=== PATIENT | female | born 1945 | race Caucasian/White ===

== ENCOUNTER 2017-03-15 17:44 | Inpatient (IN) | payer MEDICARE, OTHER ==
[~2017-03-15 17:44] MED LIST: ISOVUE-370 76%-LOCM 1 ML ONE
[2017-03-15 19:09] LABS: Hematocrit 28.2 % (36.0-47.0); Mean Platelet Volume 11.6 fL (7.4-10.4); Red Blood Cell (RBC) Count 2.62 mill/uL (4.20-5.40); White Blood Cell (WBC) Count 13.4 thou/uL (4.8-10.8)
[2017-03-15] MEDS ORDERED: Ondansetron HCl/PF 4 MG/2 ML Vial ONE (19:19)
[2017-03-15] MEDS ORDERED: Lidocaine 1% w/Epinephrine 1:200K 30 ML VIAL ONE (19:19)
[2017-03-15] MEDS ORDERED: Fentanyl 100 MCG/2 ML VIAL ONE (19:19)
[2017-03-15 19:27] LABS: ALT (SGPT) Less than 7 U/L (8-55); AST (SGOT) 9 U/L (5-34); Alkaline Phosphatase 50 U/L (40-150); Anion Gap 15 mmol/L (10-20); BUN (Urea Nitrogen) 22 mg/dL (9.8-20.1); Bilirubin, Total 0.4 mg/dL (0.2-1.2); Calc. Creatinine Clearance 0 mL/min (70-130); Calcium 8.3 mg/dL (7.8-10.44); Carbon Dioxide 23 mmol/L (23-31); Chloride 95 mmol/L (98-107); Estimated GFR-MDRD 58; Globulin 2.9 g/dL (2.4-3.5); Protein, Total 6.5 g/dL (6.0-8.3)
[2017-03-15 19:31] LABS: Anisocytosis SLIGHT = 6-15 cells (100X) (0-5/hpf); Band 4 % (5-11); Macrocytosis SLIGHT = 6-15 cells (100X) (0-5/hpf); Myelocyte 1 % (0-0); Neutrophil 80 % (42-75); Nucleated RBC 1 % (0); Ovalocytes SLIGHT = 2-5 cells (100X) (0-1/hpf); Polychromasia SLIGHT = 2-3 cells (100X) (0-2/hpf); Schistocytes SLIGHT = 2-5 cells (100X) (0-1/hpf); Tear Drops SLIGHT = 2-5 cells (100X) (0-1/hpf)
[2017-03-15 20:49] LABS: Lactic Acid - Sepsis 0.9 mmol/L (0.5-2.2)
--- NOTE | 2017-03-15 21:25 | PDOC.EVN ---
Event Note - Event Note Event Note: [id number] h&P dictated 1. Buttock abscess 2. H/O HTN 3. Sepsis Plan: see orders
--- NOTE | 2017-03-15 23:16 | CT ---
CT PELVIS WITH IV CONTRAST: 03/15/17 HISTORY: Boils on buttocks with some recently lanced. FINDINGS: Urinary bladder has a normal appearance. Reactive appearing bilateral inguinal lymph nodes are prese nt, right larger than left, measuring up to 2.2 cm. No free fluid is apparent within the pelvis. Laceration and soft tissue gas are contained to the subcutaneous tissues. this is more prominent to the right of the intergluteal fold. The gas and inflammation extend up to 4.1 cm deep. Underlying mu scle is not involved. No focal fluid collections are apparent. IMPRESSION: 1. Soft tissue laceration and soft tissue gas are contained to the subcutaneous tissues around each side of the buttocks, as detailed above. 2. Reactive inguinal adenopathy. POS: JINA
[2017-03-15] MEDS: Sodium Chloride 0.9% 1,000 ML IV SCH (23:37)
[2017-03-15] MEDS: HYDROcodone/Acetaminophen 5/325 mg Tablet PO PRN (23:38)
[2017-03-16] MEDS: Piperacillin/Tazobactam 3.375 GM in Sodium Chloride 0.9% 100 ML IVPB SCH ×4 (02:56→21:51)
[2017-03-16] MEDS ORDERED: VANCOMYCIN IVPB PRN (04:06)
[2017-03-16] MEDS ORDERED: Vancomycin HCl 1.5 GM in Sodium Chloride 0.9% 250 ML 300 ML IVPB SCH (06:00)
[2017-03-16 06:15] LABS: Anion Gap 11 mmol/L (10-20); BUN (Urea Nitrogen) 12 mg/dL (9.8-20.1); Calc. Creatinine Clearance 74 mL/min (70-130); Calcium 7.9 mg/dL (7.8-10.44); Carbon Dioxide 24 mmol/L (23-31); Chloride 101 mmol/L (98-107); Estimated GFR-MDRD 81
--- NOTE | 2017-03-16 06:15 | HP ---
CHIEF COMPLAINT: Bilateral buttock abscess. HISTORY OF PRESENT ILLNESS: The patient is a 71-year-old female. She started noticing an abscess on the right buttock initially on Sunday. Since then it slowly got worse, initially the size was a quarter size and it got worse, associated with pain so she went to the PCP as an inpatient and I\T\D done and packing done. Today she went back to see the PCP, the abscess extended and then it is present on the left buttock also so the patient was brought to the ER. Upon ER arrival the patient was found to have bilateral buttock abscess so the patient had an I\T\D done on the left buttock also. The patient admits to some chills, denies any fever, denies any nausea, denies any vomiting, denies any chest pain, denies any trouble breathing, complains of constant pain. Pain is 10/10, worsens with touch, some relief with pain medication. PAST MEDICAL HISTORY: Hypertension, hyperlipidemia. PAST SURGICAL HISTORY: Knee surgery. SOCIAL HISTORY: Denies smoking, denies alcohol and drugs. FAMILY HISTORY: Positive for heart problems. MEDICATIONS: Reviewed. REVIEW OF SYSTEMS: CONSTITUTIONAL: Denies any fever, denies any chills. EYES: PERRLA. ENT: denies hearing problems NECK: No neck pain. CARDIOVASCULAR: Denies chest pain, denies palpitations. RESPIRATORY: No wheezing, no rhonchi. Denies any wheezing. Denies any dyspnea. GASTROINTESTINAL: Denies abdominal pain, denies any nausea, vomiting. Positive for bilateral buttock ulcers. CRANIAL NERVE SYSTEM: Denies syncope. PSYCHIATRIC: Denies anxiety. INTEGUMENTARY: Denies any rash. GENITOURINARY: Denies dysuria. All other review of systems are reviewed and are negative. PHYSICAL EXAMINATION: VITAL SIGNS: At the time of H\T\P performed, blood pressure is 103/65, afebrile , respiration of 18, pulse ox 97% on room air. GENERAL: The patient appears in pain. HEENT: Nose normal. Ears patent. Hearing normal. Teeth intact. Tongue is moist. NECK: Supple, no JVD. CARDIOVASCULAR SYSTEM: S1, S2 present. Regular rate and rhythm. No murmurs, no rubs, no gallops. RESPIRATORY SYSTEM: No wheezing, no rhonchi. Breath sounds symmetric. GI: Positive for bilateral buttock ulcers. Positive for induration, positive for drainage present, warm to touch, tender to palpate. PSYCH: Mood is appropriate at this time. NEUROLOGIC: Awake, follows commands. Strength intact, sensory intact. MUSCULOSKELETAL: No edema. INTEGUMENTARY: Positive for bilateral buttock erythema present. LABORATORY DATA: At the time of H\T\P performed; white count of 10.4, hemoglobin 9.3, platelet count 249. BMP: Sodium 138, potassium 4.8, chloride 95, CO2 23, BUN 22, creatinine 0.95. ASSESSMENT AND PLAN: The patient is 71-year-old female. 1. Bilateral buttock abscess, status post incision and drainage. We will go ahead and consult General Surgery to evaluate the patient. We will keep the patient n.p.o. We will do CT pelvis to evaluate for any deep infection. We will start the patient on vancomycin and Zosyn. 2. Pain, p.r.n. pain medications. 3. Hyponatremia, mild probably due to hypovolemia, start IV fluids, repeat BMP in a.m. 4. Hypertension, monitor blood pressures, hold blood pressure medications. 5. History of hyperlipidemia. Continue home medications. The case was discussed in detail with the patient and the patient's also. ELÍAS
[2017-03-16 08:22] LABS: Band 8 % (5-11); Blast 1 % (0-0); Mean Platelet Volume 11.9 fL (7.4-10.4); Metamyelocyte 2 % (0-0); Myelocyte 1 % (0-0); Neutrophil 58 % (42-75); Nucleated RBC 1 % (0); Ovalocytes MODERATE= 6-15 cells (100X) (0-1/hpf); Polychromasia SLIGHT = 2-3 cells (100X) (0-2/hpf); Reactive Lymphocytes 5 % (0-10); Red Blood Cell (RBC) Count 2.41 mill/uL (4.20-5.40); Tear Drops MODERATE= 6-15 cells (100X) (0-1/hpf); White Blood Cell (WBC) Count 8.8 thou/uL (4.8-10.8)
[2017-03-16] MEDS ORDERED: Acetaminophen 325 MG TAB PO PRN (09:22)
[2017-03-16] MEDS ORDERED: Eucerin (Mineral Oil/Petrolatum,White) 30 gm Jar TOP PRN (09:22)
[2017-03-16] MEDS ORDERED: Senokot 8.6 MG TAB PO PRN (09:22)
[2017-03-16] MEDS ORDERED: Artificial Tears 18 DROP/0.9 ML EA EYE PRN (09:22)
[2017-03-16] MEDS ORDERED: Sodium Chloride 0.65% Nasal 44 ML BOT EA NARE PRN (09:22)
[2017-03-16] MEDS ORDERED: Milk Of Magnesia 30 ML UDCUP PO PRN (09:22)
[2017-03-16] MEDS ORDERED: Loperamide HCl 2 MG CAP PO PRN (09:22)
[2017-03-16] MEDS ORDERED: Mag-Al 1200 mg/1200 mg/30 ML UDCUP PO PRN (09:22)
[2017-03-16] MEDS ORDERED: Ondansetron ODT 4 MG TAB PO PRN (09:22)
[2017-03-16] MEDS: Sodium Chloride 0.9% 1,000 ML IV SCH (10:06)
[2017-03-16] MEDS: Heparin 5,000 UNITS/ML VIAL SC SCH ×3 (10:07→21:50)
--- NOTE | 2017-03-16 11:16 | CON ---
DATE OF CONSULTATION: 03/16/2017 HISTORY OF PRESENT ILLNESS: A 71-year-old female seen in the emergency room for incision and draina ge right buttock abscess. She had a new abscess on the left that was drained by Dr. Rosen. She marino s previous drainage of the right abscess. She is admitted for intravenous antibiotics. I have been asked to see her regarding this. The wound looks very indurated, red and a small 2.5 to 3 cm incis ion made. There was necrotic tissue. Plan is to debride this and drain this further in the operati ng room today under anesthesia. She understands the risks and benefits and consents. She is on van comycin and Zosyn. ALLERGIES: None. SOCIAL HISTORY: Tobacco 1/2 pack per day. ALCOHOL: Socially. HOME MEDICATIONS: Home medication list is not reconciled. She has a bag of medications that have n ot been listed yet. . PAST SURGICAL HISTORY: Left carotid endarterectomy, left lumbar hernia repair, right inguinal herni a repair, total abdominal hysterectomy without oophorectomy. PAST MEDICAL HISTORY: She has some hematological problem with microcytic anemia that Dr. Raines marino s been seeing. She is due for colonoscopy. She had one many years ago with Dr. Lima. The patient is followed by Dr. Paxton Parisi. She has had a cardiac stress test last year that was normal, has sultana e kind of calcium score that they are following. She has never had a catheterization, but did have an normal exercise stress test in the office last year. REVIEW OF SYSTEMS: Ten point noncontributory. PHYSICAL EXAMINATION: VITAL SIGNS: Height 5 foot 2, 141 pounds, 25 BMI, 98.5, 89, 91/56. HEENT: Unremarkable. LUNGS: Clear to auscultation. CARDIAC: Regular rate and rhythm without murmur or gallop. ABDOMEN: Soft, nontender. EXTREMITIES: Unremarkable. BUTTOCKS: Left buttocks small incision. No significant induration or redness. Right buttocks with severe induration over about a 12 cm area, small opening necrotic tissue beneath very tender. ASSESSMENT AND PLAN: Inadequately drained right buttock abscess. We will plan incision and drainag e under anesthesia today in the operating room. She understands the risks and benefits and consents .
--- NOTE | 2017-03-16 11:44 | PDOC.PN ---
- Subjective Encounter Start Date: 03/16/17 Encounter Start Time: 07:50 -: old records requested/rev Patient seen and examined. No new complaints. No overnight events, pt has lot of pain in right buttock - Objective MAR Reviewed: Yes Vital Signs & Weight: Vital Signs (12 hours) Temp Pulse Resp BP Pulse Ox 03/16/17 07:20 98.5 F 89 16 91/56 L 93 L 03/16/17 02:58 94/64 Weight Weight 141 lb 1.533 oz I&O: 03/15/17 03/16/17 03/17/17 06:59 06:59 06:59 Intake Total 1200 Output Total 1200 Balance 0 Result Diagrams: 03/16/17 05:04 03/16/17 05:04 Phys Exam - Physical Examination Constitutional: NAD HEENT: PERRLA, moist MMs, sclera anicteric Neck: no JVD, supple Respiratory: no wheezing, no rales, no rhonchi Cardiovascular: RRR, no significant murmur, no rub Gastrointestinal: soft, non-tender, no distention, positive bowel sounds Musculoskeletal: no edema, pulses present Neurological: non-focal, normal sensation Psychiatric: normal affect, A&O x 3 Skin: no rash, normal turgor Deviation from normal: right buttock abscess Dx/Plan (1) Abscess of buttock Code(s): L02.31 - CUTANEOUS ABSCESS OF BUTTOCK Status: Acute (2) Hyponatremia Code(s): E87.1 - HYPO-OSMOLALITY AND HYPONATREMIA Status: Acute (3) Sepsis Code(s): A41.9 - SEPSIS, UNSPECIFIED ORGANISM Status: Acute (4) Dyslipidemia Code(s): E78.5 - HYPERLIPIDEMIA, UNSPECIFIED Status: Chronic (5) Hypertension Code(s): I10 - ESSENTIAL (PRIMARY) HYPERTENSION Status: Chronic (6) Macrocytic anemia Code(s): D53.9 - NUTRITIONAL ANEMIA, UNSPECIFIED Status: Chronic - Plan cont current plan of care, plan discussed w/ family, continue antibiotics * continue vancomycin and zosyn * pain control * selected home medication * discussed with dr castillo, will need I & D in OR later today * wound care. * medication reviewed as below * symptomatic treatment Review of Systems - Review of Systems ENT: negative: Ear Pain, Ear Discharge, Nose Pain, Nose Discharge, Nose Congestion, Mouth Pain, Mouth Swelling, Throat Pain, Throat Swelling, Other Respiratory: negative: Cough, Dry, Shortness of Breath, Hemoptysis, SOB with Excertion, Pleuritic Pain, Sputum, Wheezing Cardiovascular: negative: Chest Pain, Palpitations, Orthopnea, Paroxysmal Noc. Dyspnea, Edema, Light Headedness, Other Gastrointestinal: negative: Nausea, Vomiting, Abdominal Pain, Diarrhea, Constipation, Melena, Hematochezia, Other Genitourinary: negative: Dysuria, Frequency, Incontinence, Hematuria, Retention , Other Musculoskeletal: negative: Neck Pain, Shoulder Pain, Arm Pain, Back Pain, Hand Pain, Leg Pain, Foot Pain, Other Skin: negative: Rash, Lesions, Guillermo, Bruising, Other - Medications/Allergies Allergies/Adverse Reactions: Allergies Allergy/AdvReac Type Severity Reaction Status Date / Time No Known Allergies Allergy Verified 03/15/17 22:21 Medications: Current Medications Acetaminophen (Tylenol) 650 mg PO Q4H PRN PRN Reason: Headache/Fever or Mild Pain Hydrocodone Bitart/Acetaminophen ([place] 5/325) 1 tab PO Q4H PRN PRN Reason: Moderate Pain (4-6) Al Hydroxide/Mg Hydroxide (Maalox) 15 ml PO Q4H PRN PRN Reason: Heartburn or Indigestion Artificial Tears (Tears Naturale) 0 drop EA EYE PRN PRN PRN Reason: Dry Eyes Famotidine (Pepcid) 20 mg PO BID [facility] Guaifenesin (Robitussin Sf) 200 mg PO Q4H PRN PRN Reason: Cough Heparin Sodium (Porcine) (Heparin) 5,000 units SC TID [facility] Last Admin: 03/16/17 10:07 Dose: Not Given Hydralazine HCl (Apresoline) 5 mg SLOW IVP Q4H PRN PRN Reason: SBP Greater Than 170 Piperacillin Sod/Tazobactam (Sod 3.375 gm/ Sodium Chloride) 100 mls @ 200 mls/ hr IVPB 0300,0900,1500,2100 [facility] Last Admin: 03/16/17 10:06 Dose: 100 mls Vancomycin HCl 1 gm/ Device 200 mls @ 200 mls/hr IVPB 2000 [facility] Sodium Chloride (1/2 Normal Saline) 1,000 mls @ 100 mls/hr IV .Q10H [facility] Loperamide HCl (Imodium) 2 mg PO PRN PRN PRN Reason: Diarrhea/Loose Stools Magnesium Hydroxide (Milk Of Magnesium) 30 ml PO DAILYPRN PRN PRN Reason: Constipation Mineral Oil/White Petrolatum (Eucerin Cream) 0 gm TOP BIDPRN PRN PRN Reason: Dry Skin Miscellaneous Medication (Pharmacy To Dose) 1 each IVPB PRN PRN PRN Reason: RPH TO DOSE VANC Morphine Sulfate (Morphine Sulfate) 4 mg SLOW IVP Q4H PRN PRN Reason: Severe Pain (7-10) Ondansetron HCl (Zofran Odt) 4 mg PO Q6H PRN PRN Reason: Nausea/Vomiting Ondansetron HCl (Zofran) 4 mg IVP Q6H PRN PRN Reason: Nausea/Vomiting Saccharomyces Boulardii (Florastor) 250 mg PO DAILY [facility] Senna (Senokot) 2 tab PO HSPRN PRN PRN Reason: Constipation Sodium Chloride ([place] Nasal [place] 0.65%) 0 ml EA NARE QIDPRN PRN PRN Reason: Nasal Congestion
[2017-03-16] MEDS: Sodium Chloride 0.45% 1,000 ML IV SCH ×2 (15:53→21:41)
[2017-03-16] MEDS ORDERED: Metoprolol Tartrate 25 MG TAB PO SCH (16:45)
[2017-03-16] MEDS ORDERED: Scopolamine 1.5 mg/72 hour Patch ONE (18:45)
[2017-03-16] MEDS ORDERED: Bupivacaine HCl 0.5%/Epinephrine 1:200,000/PF 30 ml Vial ONE (19:27)
[2017-03-16] MEDS ORDERED: Fentanyl 100 MCG/2 ML VIAL ONE (19:33)
[2017-03-16] MEDS ORDERED: Lidocaine 2% PF 10 ML AMP (For Epidural Use) ONE (19:54)
[2017-03-16] MEDS ORDERED: Glycopyrrolate 0.2 MG/ML 5 ML SYRINGE ONE (19:54)
[2017-03-16] MEDS ORDERED: Ondansetron HCl/PF 4 MG/2 ML Vial ONE (19:54)
[2017-03-16] MEDS ORDERED: Propofol 200 MG/20 ML VIAL ONE (19:54)
[2017-03-16] MEDS ORDERED: Famotidine 20 MG TAB PO SCH (21:00)
[2017-03-16] MEDS ORDERED: traMADol HCl 50 MG TAB PO PRN (21:31)
[2017-03-16] MEDS ORDERED: Acetaminophen 500 MG TAB PO PRN (21:31)
[2017-03-16] MEDS: Vancomycin HCl 1 GM in Premix Bag 1 BAG IVPB SCH (21:35)
[2017-03-17] MEDS: Piperacillin/Tazobactam 3.375 GM in Sodium Chloride 0.9% 100 ML IVPB SCH ×4 (03:01→20:57)
--- NOTE | 2017-03-17 06:57 | OP ---
DATE OF OPERATION: 03/16/2017 PREOPERATIVE DIAGNOSIS: Right buttock abscess. POSTOPERATIVE DIAGNOSIS: Right buttock abscess. PROCEDURES PERFORMED: Incision and drainage of right buttock abscess with sharp excision resectiona l, necrotic skin edges, more aggressive drainage of deep tissues. Wound packed open to heal by seco ndary intention. ANESTHESIA: General anesthesia, local 0.5% Marcaine with epinephrine mixed with 2% Xylocaine, 10 mL respectfully. ESTIMATED BLOOD LOSS: 20 mL. DESCRIPTION OF PROCEDURE: Patient was taken to the operating room where under general anesthesia in the left lateral decubitus position with proper padding, anne bag, and axillary roll, her right but tock was prepared with Betadine and draped in routine fashion. There some necrotic skin edges. Ski n and subcutaneous tissue excised with #10 blade sharply resectional and hemostasis gained with caut keren. There was induration in the deep tissues and this was opened. There was some cloudy particula te fluid drained. This was opened down to healthy tissue. Hemostasis gained with cautery. Wound w as irrigated. Local anesthetic infiltrated about the wound for postoperative pain control. Wound p acked open. The patient tolerated the procedure well.
[2017-03-17] MEDS: Heparin 5,000 UNITS/ML VIAL SC SCH ×2 (09:07→20:58)
[2017-03-17] MEDS: Polyethylene Glycol 3350 17 GM Packet PO SCH (09:07)
[2017-03-17] MEDS: Tolterodine Tartrate LA 4 MG CAP PO SCH (09:08)
[2017-03-17] MEDS: Saccharomyces boulardii 250 MG CAP PO SCH (09:17)
[2017-03-17] MEDS: HYDROcodone/Acetaminophen 5/325 mg Tablet PO PRN (09:32)
--- NOTE | 2017-03-17 11:11 | PDOC.PN ---
- Subjective Encounter Start Date: 03/17/17 Encounter Start Time: 07:30 Patient seen and examined. No new complaints. No overnight events - Objective MAR Reviewed: Yes Vital Signs & Weight: Vital Signs (12 hours) Temp Pulse Resp BP Pulse Ox 03/17/17 09:59 97.6 F 73 18 03/17/17 04:38 97.6 F 73 18 105/62 98 03/17/17 00:00 98.0 F 80 14 94/60 95 Weight Weight 141 lb 1.533 oz I&O: 03/16/17 03/17/17 03/18/17 06:59 06:59 06:59 Intake Total 1200 730 Output Total 1200 300 Balance 0 430 Result Diagrams: 03/16/17 05:04 03/16/17 05:04 Phys Exam - Physical Examination Constitutional: NAD HEENT: PERRLA, moist MMs, sclera anicteric Neck: no JVD, supple Respiratory: no wheezing, no rales, no rhonchi Cardiovascular: RRR, no significant murmur, no rub Gastrointestinal: soft, non-tender, no distention, positive bowel sounds Musculoskeletal: no edema, pulses present Neurological: non-focal, normal sensation, moves all 4 limbs Psychiatric: normal affect, A&O x 3 Skin: no rash, normal turgor Dx/Plan (1) Abscess of buttock Code(s): L02.31 - CUTANEOUS ABSCESS OF BUTTOCK Status: Acute Comment: s/p I & D (2) Hyponatremia Code(s): E87.1 - HYPO-OSMOLALITY AND HYPONATREMIA Status: Acute (3) Sepsis Code(s): A41.9 - SEPSIS, UNSPECIFIED ORGANISM Status: Acute (4) Dyslipidemia Code(s): E78.5 - HYPERLIPIDEMIA, UNSPECIFIED Status: Chronic (5) Hypertension Code(s): I10 - ESSENTIAL (PRIMARY) HYPERTENSION Status: Chronic (6) Macrocytic anemia Code(s): D53.9 - NUTRITIONAL ANEMIA, UNSPECIFIED Status: Chronic - Plan cont current plan of care, plan discussed w/ family, continue antibiotics, social sciences instructor * s/p I & D * now will need wound care by [facility] * will need home health for wound care * continue IV vancomycin and zosyn * medication reviewed as below * symptomatic treatment. Review of Systems - Review of Systems Constitutional: negative: Fever, Chills, Sweats, Weakness, Malaise, Other ENT: negative: Ear Pain, Ear Discharge, Nose Pain, Nose Discharge, Nose Congestion, Mouth Pain, Mouth Swelling, Throat Pain, Throat Swelling, Other Respiratory: negative: Cough, Dry, Shortness of Breath, Hemoptysis, SOB with Excertion, Pleuritic Pain, Sputum, Wheezing Cardiovascular: negative: Chest Pain, Palpitations, Orthopnea, Paroxysmal Noc. Dyspnea, Edema, Light Headedness, Other Gastrointestinal: negative: Nausea, Vomiting, Abdominal Pain, Diarrhea, Constipation, Melena, Hematochezia, Other Genitourinary: negative: Dysuria, Frequency, Incontinence, Hematuria, Retention , Other Musculoskeletal: negative: Neck Pain, Shoulder Pain, Arm Pain, Back Pain, Hand Pain, Leg Pain, Foot Pain, Other - Medications/Allergies Allergies/Adverse Reactions: Allergies Allergy/AdvReac Type Severity Reaction Status Date / Time No Known Allergies Allergy Verified 03/15/17 22:21 Medications: Current Medications Acetaminophen (Tylenol) 1,000 mg PO Q6H PRN PRN Reason: Moderate to Severe Pain (6-10) Hydrocodone Bitart/Acetaminophen ([place] 5/325) 1 tab PO Q4H PRN PRN Reason: Moderate Pain (4-6) Last Admin: 03/17/17 09:32 Dose: 1 tab Al Hydroxide/Mg Hydroxide (Maalox) 15 ml PO Q4H PRN PRN Reason: Heartburn or Indigestion Artificial Tears (Tears Naturale) 0 drop EA EYE PRN PRN PRN Reason: Dry Eyes Citalopram Hydrobromide (Celexa) 20 mg PO DAILY [facility] Last Admin: 03/17/17 09:08 Dose: 20 mg Guaifenesin (Robitussin Sf) 200 mg PO Q4H PRN PRN Reason: Cough Heparin Sodium (Porcine) (Heparin) 5,000 units SC BID [facility] Last Admin: 03/17/17 09:07 Dose: 5,000 units Hydralazine HCl (Apresoline) 5 mg SLOW IVP Q4H PRN PRN Reason: SBP Greater Than 170 Piperacillin Sod/Tazobactam (Sod 3.375 gm/ Sodium Chloride) 100 mls @ 200 mls/ hr IVPB 0300,0900,1500,2100 [facility] Last Admin: 03/17/17 09:07 Dose: 100 mls Vancomycin HCl 1 gm/ Device 200 mls @ 200 mls/hr IVPB 1999 [facility] Last Admin: 03/16/17 21:35 Dose: Not Given Ibuprofen (Motrin) 600 mg PO Q6H PRN PRN Reason: Pain 4-6 Loperamide HCl (Imodium) 2 mg PO PRN PRN PRN Reason: Diarrhea/Loose Stools Magnesium Hydroxide (Milk Of Magnesium) 30 ml PO DAILYPRN PRN PRN Reason: Constipation Mineral Oil/White Petrolatum (Eucerin Cream) 0 gm TOP BIDPRN PRN PRN Reason: Dry Skin Miscellaneous Medication (Pharmacy To Dose) 1 each IVPB PRN PRN PRN Reason: RPH TO DOSE VANC Morphine Sulfate (Morphine Sulfate) 4 mg SLOW IVP Q4H PRN PRN Reason: Severe Pain (7-10) Last Admin: 03/16/17 15:51 Dose: 4 mg Ondansetron HCl (Zofran Odt) 4 mg PO Q6H PRN PRN Reason: Nausea/Vomiting Ondansetron HCl (Zofran) 4 mg IVP Q6H PRN PRN Reason: Nausea/Vomiting Pantoprazole Sodium (Protonix) 40 mg PO DAILY [facility] Last Admin: 03/17/17 09:08 Dose: 40 mg Polyethylene Glycol (Miralax) 17 gm PO DAILY [facility] Last Admin: 03/17/17 09:07 Dose: 17 gm Saccharomyces Boulardii (Florastor) 250 mg PO DAILY [facility] Last Admin: 03/17/17 09:17 Dose: 250 mg Senna (Senokot) 2 tab PO HSPRN PRN PRN Reason: Constipation Simvastatin (Zocor) 40 mg PO [facility] Sodium Chloride ([place] Nasal [place] 0.65%) 0 ml EA NARE QIDPRN PRN PRN Reason: Nasal Congestion Tolterodine Tartrate (Detrol La) 4 mg PO DAILY [facility] Last Admin: 03/17/17 09:08 Dose: 4 mg Tramadol HCl (Ultram) 50 mg PO Q6H PRN PRN Reason: Mild-Moderate Pain (1-5) Tramadol HCl (Ultram) 100 mg PO Q6H PRN PRN Reason: Moderate to Severe Pain (6-10)
[2017-03-17] MEDS: Diabetic Tussin 200 MG/10 ML UDCUP PO PRN (19:06)
[2017-03-17 19:41] LABS: Vancomycin, Trough 5.2 ug/mL
[2017-03-17] MEDS: Vancomycin HCl 1 GM in Premix Bag 1 BAG IVPB SCH (20:57)
[2017-03-17] MEDS: Simvastatin 40 MG TAB PO SCH (20:57)
[2017-03-18] MEDS: Piperacillin/Tazobactam 3.375 GM in Sodium Chloride 0.9% 100 ML IVPB SCH ×4 (04:41→20:32)
[2017-03-18] MEDS: Vancomycin HCl 1 GM in Premix Bag 1 BAG IVPB SCH ×2 (08:41→20:31)
[2017-03-18] MEDS: Polyethylene Glycol 3350 17 GM Packet PO SCH ×2 (08:41→20:32)
[2017-03-18] MEDS: Heparin 5,000 UNITS/ML VIAL SC SCH ×2 (08:47→20:31)
[2017-03-18] MEDS: Saccharomyces boulardii 250 MG CAP PO SCH (08:47)
[2017-03-18] MEDS: Tolterodine Tartrate LA 4 MG CAP PO SCH (08:47)
[2017-03-18] MEDS ORDERED: Bisacodyl 10 MG SUPP PR PRN (10:05)
[2017-03-18] MEDS ORDERED: Fleet Enema 133 ML BOT PR PRN (10:05)
[2017-03-18] MEDS ORDERED: Polyethylene Glycol 3350 17 GM Packet PO SCH (10:15)
--- NOTE | 2017-03-18 11:25 | PDOC.PN ---
- Subjective Encounter Start Date: 03/18/17 Encounter Start Time: 07:35 pt has constipation, no fever Patient seen and examined. No overnight events - Objective MAR Reviewed: Yes Vital Signs & Weight: Vital Signs (12 hours) Temp Pulse Resp BP Pulse Ox 03/18/17 08:05 88 14 113/72 03/18/17 08:00 98.5 F 86 16 111/70 93 L 03/18/17 04:00 98.4 F 86 14 97/63 92 L 03/18/17 00:30 107/70 03/18/17 00:00 98.3 F 87 14 90/49 L 93 L Weight Admit Weight 141 lb Weight 141 lb 1.533 oz I&O: 03/17/17 03/18/17 03/19/17 06:59 06:59 06:59 Intake Total 730 800 Output Total 300 1450 Balance 430 -650 Result Diagrams: 03/16/17 05:04 03/16/17 05:04 Phys Exam - Physical Examination Constitutional: NAD HEENT: PERRLA, moist MMs, sclera anicteric Neck: no JVD, supple Respiratory: no wheezing, no rales, no rhonchi Cardiovascular: RRR, no significant murmur, no rub Gastrointestinal: soft, non-tender, no distention, positive bowel sounds Musculoskeletal: no edema, pulses present Neurological: non-focal, normal sensation Psychiatric: normal affect, A&O x 3 Skin: no rash, normal turgor Dx/Plan (1) Abscess of buttock Code(s): L02.31 - CUTANEOUS ABSCESS OF BUTTOCK Status: Acute Comment: s/p I & D (2) Hyponatremia Code(s): E87.1 - HYPO-OSMOLALITY AND HYPONATREMIA Status: Acute (3) Sepsis Code(s): A41.9 - SEPSIS, UNSPECIFIED ORGANISM Status: Acute (4) Dyslipidemia Code(s): E78.5 - HYPERLIPIDEMIA, UNSPECIFIED Status: Chronic (5) Hypertension Code(s): I10 - ESSENTIAL (PRIMARY) HYPERTENSION Status: Chronic (6) Macrocytic anemia Code(s): D53.9 - NUTRITIONAL ANEMIA, UNSPECIFIED Status: Chronic - Plan cont current plan of care * will give stool softener for constipation * medication reviewed as below * symptomatic treatment * oncology to see her today. * continue vancomycin and zosyn * wound care Review of Systems - Review of Systems ENT: negative: Ear Pain, Ear Discharge, Nose Pain, Nose Discharge, Nose Congestion, Mouth Pain, Mouth Swelling, Throat Pain, Throat Swelling, Other Respiratory: negative: Cough, Dry, Shortness of Breath, Hemoptysis, SOB with Excertion, Pleuritic Pain, Sputum, Wheezing Cardiovascular: negative: Chest Pain, Palpitations, Orthopnea, Paroxysmal Noc. Dyspnea, Edema, Light Headedness, Other Gastrointestinal: Constipation. negative: Nausea, Vomiting, Abdominal Pain, Diarrhea, Melena, Hematochezia, Other Genitourinary: negative: Dysuria, Frequency, Incontinence, Hematuria, Retention , Other Musculoskeletal: negative: Neck Pain, Shoulder Pain, Arm Pain, Back Pain, Hand Pain, Leg Pain, Foot Pain, Other - Medications/Allergies Allergies/Adverse Reactions: Allergies Allergy/AdvReac Type Severity Reaction Status Date / Time No Known Allergies Allergy Verified 03/15/17 22:21 Medications: Current Medications Acetaminophen (Tylenol) 1,000 mg PO Q6H PRN PRN Reason: Moderate to Severe Pain (6-10) Hydrocodone Bitart/Acetaminophen ([place] 5/325) 1 tab PO Q4H PRN PRN Reason: Moderate Pain (4-6) Last Admin: 03/17/17 09:32 Dose: 1 tab Al Hydroxide/Mg Hydroxide (Maalox) 15 ml PO Q4H PRN PRN Reason: Heartburn or Indigestion Artificial Tears (Tears Naturale) 0 drop EA EYE PRN PRN PRN Reason: Dry Eyes Bisacodyl (Dulcolax) 10 mg MD Q8H PRN PRN Reason: Constipation Citalopram Hydrobromide (Celexa) 20 mg PO DAILY [facility] Last Admin: 03/18/17 08:47 Dose: 20 mg Guaifenesin (Robitussin Sf) 200 mg PO Q4H PRN PRN Reason: Cough Last Admin: 03/17/17 19:06 Dose: 200 mg Heparin Sodium (Porcine) (Heparin) 5,000 units SC BID [facility] Last Admin: 03/18/17 08:47 Dose: 5,000 units Hydralazine HCl (Apresoline) 5 mg SLOW IVP Q4H PRN PRN Reason: SBP Greater Than 170 Piperacillin Sod/Tazobactam (Sod 3.375 gm/ Sodium Chloride) 100 mls @ 200 mls/ hr IVPB 0300,0900,1500,2100 [facility] Last Admin: 03/18/17 08:59 Dose: 100 mls Vancomycin HCl 1 gm/ Device 200 mls @ 200 mls/hr IVPB 0800,2000 [facility] Last Admin: 03/18/17 08:41 Dose: 200 mls Ibuprofen (Motrin) 600 mg PO Q6H PRN PRN Reason: Pain 4-6 Loperamide HCl (Imodium) 2 mg PO PRN PRN PRN Reason: Diarrhea/Loose Stools Magnesium Hydroxide (Milk Of Magnesium) 30 ml PO DAILYPRN PRN PRN Reason: Constipation Mineral Oil/White Petrolatum (Eucerin Cream) 0 gm TOP BIDPRN PRN PRN Reason: Dry Skin Miscellaneous Medication (Pharmacy To Dose) 1 each IVPB PRN PRN PRN Reason: RPH TO DOSE VANC Morphine Sulfate (Morphine Sulfate) 4 mg SLOW IVP Q4H PRN PRN Reason: Severe Pain (7-10) Last Admin: 03/16/17 15:51 Dose: 4 mg Ondansetron HCl (Zofran Odt) 4 mg PO Q6H PRN PRN Reason: Nausea/Vomiting Ondansetron HCl (Zofran) 4 mg IVP Q6H PRN PRN Reason: Nausea/Vomiting Pantoprazole Sodium (Protonix) 40 mg PO DAILY [facility] Last Admin: 03/18/17 08:47 Dose: 40 mg Polyethylene Glycol (Miralax) 17 gm PO BID [facility] Polyethylene Glycol (Miralax) 17 gm PO NOW [facility] Stop: 03/18/17 13:00 Saccharomyces Boulardii (Florastor) 250 mg PO DAILY [facility] Last Admin: 03/18/17 08:47 Dose: 250 mg Senna (Senokot) 2 tab PO HSPRN PRN PRN Reason: Constipation Simvastatin (Zocor) 40 mg PO HS [facility] Last Admin: 03/17/17 20:57 Dose: 40 mg Sodium Biphosphate/Sodium Phosphate ([place] Enema) 133 ml MD ONE PRN PRN Reason: Constipation Stop: 03/18/17 23:59 Sodium Chloride ([place] Nasal [place] 0.65%) 0 ml EA NARE QIDPRN PRN PRN Reason: Nasal Congestion Tolterodine Tartrate (Detrol La) 4 mg PO DAILY [facility] Last Admin: 03/18/17 08:47 Dose: 4 mg Tramadol HCl (Ultram) 50 mg PO Q6H PRN PRN Reason: Mild-Moderate Pain (1-5) Tramadol HCl (Ultram) 100 mg PO Q6H PRN PRN Reason: Moderate to Severe Pain (6-10)
[2017-03-18] MEDS: Ibuprofen 600 MG TAB PO PRN (17:10)
[2017-03-18] MEDS: Simvastatin 40 MG TAB PO SCH (20:33)
[2017-03-19] MEDS: Piperacillin/Tazobactam 3.375 GM in Sodium Chloride 0.9% 100 ML IVPB SCH ×4 (04:00→20:28)
[2017-03-19 07:28] LABS: Vancomycin, Trough 22.8 ug/mL
[2017-03-19 07:40] LABS: Hematocrit 26.8 % (36.0-47.0); Mean Platelet Volume 11.5 fL (7.4-10.4); Red Blood Cell (RBC) Count 2.55 mill/uL (4.20-5.40); White Blood Cell (WBC) Count 12.7 thou/uL (4.8-10.8)
[2017-03-19 08:00] LABS: ALT (SGPT) 9 U/L (8-55); AST (SGOT) 10 U/L (5-34); Alkaline Phosphatase 43 U/L (40-150); Anion Gap 15 mmol/L (10-20); BUN (Urea Nitrogen) 7 mg/dL (9.8-20.1); Bilirubin, Total 0.2 mg/dL (0.2-1.2); Calc. Creatinine Clearance 60 mL/min (70-130); Carbon Dioxide 27 mmol/L (23-31); Chloride 106 mmol/L (98-107); Estimated GFR-MDRD 64; Globulin 2.8 g/dL (2.4-3.5); LDH 481 U/L (125-220); Protein, Total 6.1 g/dL (6.0-8.3); Uric Acid 4.6 mg/dL (2.6-6.0)
[2017-03-19] MEDS: traMADol HCl 50 MG TAB PO PRN (08:24)
[2017-03-19] MEDS: Saccharomyces boulardii 250 MG CAP PO SCH (08:24)
[2017-03-19] MEDS: Heparin 5,000 UNITS/ML VIAL SC SCH ×2 (08:24→20:27)
[2017-03-19] MEDS: Vancomycin HCl 1 GM in Premix Bag 1 BAG IVPB SCH (08:41)
[2017-03-19] MEDS: Polyethylene Glycol 3350 17 GM Packet PO SCH ×2 (08:42→20:28)
[2017-03-19 08:49] LABS: Anisocytosis MODERATE=16-30 cells (100X) (0-5/hpf); Band 11 % (5-11); Blast 27 % (0-0); Myelocyte 7 % (0-0); Neutrophil 45 % (42-75); Ovalocytes MODERATE= 6-15 cells (100X) (0-1/hpf); Polychromasia MODERATE = 3-4 cells (100X) (0-2/hpf); Tear Drops SLIGHT = 2-5 cells (100X) (0-1/hpf)
--- NOTE | 2017-03-19 11:46 | PDOC.PN ---
- Subjective Encounter Start Date: 03/19/17 Encounter Start Time: 10:50 Patient seen and examined. No new complaints. No overnight events - Objective MAR Reviewed: Yes Vital Signs & Weight: Vital Signs (12 hours) Temp Pulse Resp BP Pulse Ox 03/19/17 08:00 98.0 F 83 16 100/65 96 03/19/17 04:00 98.1 F 79 14 103/63 95 03/19/17 00:00 98.2 F 90 14 110/68 94 L Weight Admit Weight 141 lb Weight 141 lb 1.533 oz I&O: 03/18/17 03/19/17 03/20/17 06:59 06:59 06:59 Intake Total 800 1880 Output Total 1450 Balance -650 1880 Result Diagrams: 03/19/17 07:16 03/19/17 07:16 Phys Exam - Physical Examination Constitutional: NAD HEENT: PERRLA, moist MMs, sclera anicteric Neck: no JVD, supple Respiratory: no wheezing, no rales, no rhonchi Cardiovascular: RRR, no significant murmur, no rub Gastrointestinal: soft, non-tender, no distention, positive bowel sounds Musculoskeletal: no edema, pulses present wound noted over buttoch with wound care team Neurological: non-focal, normal sensation Psychiatric: normal affect, A&O x 3 Skin: no rash, normal turgor Dx/Plan (1) Abscess of buttock Code(s): L02.31 - CUTANEOUS ABSCESS OF BUTTOCK Status: Acute Comment: s/p I & D (2) Hyponatremia Code(s): E87.1 - HYPO-OSMOLALITY AND HYPONATREMIA Status: Acute (3) Sepsis Code(s): A41.9 - SEPSIS, UNSPECIFIED ORGANISM Status: Acute (4) Dyslipidemia Code(s): E78.5 - HYPERLIPIDEMIA, UNSPECIFIED Status: Chronic (5) Hypertension Code(s): I10 - ESSENTIAL (PRIMARY) HYPERTENSION (6) Macrocytic anemia Code(s): D53.9 - NUTRITIONAL ANEMIA, UNSPECIFIED Status: Chronic - Plan cont current plan of care, continue antibiotics * will need wound vac arrangement * at this point blast cell is concerning, hematology consulted for that * continue vancomycin and zosyn * medication reviewed as below * symptomatic treatment * pain control. * discussed with dr castillo Review of Systems - Review of Systems ENT: negative: Ear Pain, Ear Discharge, Nose Pain, Nose Discharge, Nose Congestion, Mouth Pain, Mouth Swelling, Throat Pain, Throat Swelling, Other Respiratory: negative: Cough, Dry, Shortness of Breath, Hemoptysis, SOB with Excertion, Pleuritic Pain, Sputum, Wheezing Cardiovascular: negative: Chest Pain, Palpitations, Orthopnea, Paroxysmal Noc. Dyspnea, Edema, Light Headedness, Other Gastrointestinal: negative: Nausea, Vomiting, Abdominal Pain, Diarrhea, Constipation, Melena, Hematochezia, Other Genitourinary: negative: Dysuria, Frequency, Incontinence, Hematuria, Retention , Other Musculoskeletal: negative: Neck Pain, Shoulder Pain, Arm Pain, Back Pain, Hand Pain, Leg Pain, Foot Pain, Other Skin: negative: Rash, Lesions, Guillermo, Bruising, Other - Medications/Allergies Allergies/Adverse Reactions: Allergies Allergy/AdvReac Type Severity Reaction Status Date / Time No Known Allergies Allergy Verified 03/15/17 22:21 Medications: Current Medications Acetaminophen (Tylenol) 1,000 mg PO Q6H PRN PRN Reason: Moderate to Severe Pain (6-10) Hydrocodone Bitart/Acetaminophen ([place] 5/325) 1 tab PO Q4H PRN PRN Reason: Moderate Pain (4-6) Last Admin: 03/17/17 09:32 Dose: 1 tab Al Hydroxide/Mg Hydroxide (Maalox) 15 ml PO Q4H PRN PRN Reason: Heartburn or Indigestion Artificial Tears (Tears Naturale) 0 drop EA EYE PRN PRN PRN Reason: Dry Eyes Bisacodyl (Dulcolax) 10 mg [place] Q8H PRN PRN Reason: Constipation Citalopram Hydrobromide (Celexa) 20 mg PO DAILY [facility] Last Admin: 03/19/17 08:24 Dose: 20 mg Guaifenesin (Robitussin Sf) 200 mg PO Q4H PRN PRN Reason: Cough Last Admin: 03/17/17 19:06 Dose: 200 mg Heparin Sodium (Porcine) (Heparin) 5,000 units SC BID [facility] Last Admin: 03/19/17 08:24 Dose: 5,000 units Hydralazine HCl (Apresoline) 5 mg SLOW IVP Q4H PRN PRN Reason: SBP Greater Than 170 Piperacillin Sod/Tazobactam (Sod 3.375 gm/ Sodium Chloride) 100 mls @ 200 mls/ hr IVPB 0300,0900,1500,2100 [facility] Last Admin: 03/19/17 10:06 Dose: 100 mls Vancomycin HCl 750 mg/ Sodium (Chloride) 250 mls @ 250 mls/hr IVPB 0800,2000 [facility] Ibuprofen (Motrin) 600 mg PO Q6H PRN PRN Reason: Pain 4-6 Last Admin: 03/18/17 17:10 Dose: 600 mg Loperamide HCl (Imodium) 2 mg PO PRN PRN PRN Reason: Diarrhea/Loose Stools Magnesium Hydroxide (Milk Of Magnesium) 30 ml PO DAILYPRN PRN PRN Reason: Constipation Mineral Oil/White Petrolatum (Eucerin Cream) 0 gm TOP BIDPRN PRN PRN Reason: Dry Skin Miscellaneous Medication (Pharmacy To Dose) 1 each IVPB PRN PRN PRN Reason: RPH TO DOSE VANC Morphine Sulfate (Morphine Sulfate) 4 mg SLOW IVP Q4H PRN PRN Reason: Severe Pain (7-10) Last Admin: 03/16/17 15:51 Dose: 4 mg Ondansetron HCl (Zofran Odt) 4 mg PO Q6H PRN PRN Reason: Nausea/Vomiting Ondansetron HCl (Zofran) 4 mg IVP Q6H PRN PRN Reason: Nausea/Vomiting Pantoprazole Sodium (Protonix) 40 mg PO DAILY [facility] Last Admin: 03/19/17 08:24 Dose: 40 mg Polyethylene Glycol (Miralax) 17 gm PO BID [facility] Last Admin: 03/19/17 08:42 Dose: Not Given Saccharomyces Boulardii (Florastor) 250 mg PO DAILY [facility] Last Admin: 03/19/17 08:24 Dose: 250 mg Senna (Senokot) 2 tab PO HSPRN PRN PRN Reason: Constipation Simvastatin (Zocor) 40 mg PO HS [facility] Last Admin: 03/18/17 20:33 Dose: 40 mg Sodium Chloride ([place] Nasal [place] 0.65%) 0 ml EA NARE QIDPRN PRN PRN Reason: Nasal Congestion Tolterodine Tartrate (Detrol La) 4 mg PO DAILY [facility] Last Admin: 03/18/17 08:47 Dose: 4 mg Tramadol HCl (Ultram) 50 mg PO Q6H PRN PRN Reason: Mild-Moderate Pain (1-5) Tramadol HCl (Ultram) 100 mg PO Q6H PRN PRN Reason: Moderate to Severe Pain (6-10) Last Admin: 03/19/17 08:24 Dose: 100 mg
[2017-03-19] MEDS: Tolterodine Tartrate LA 4 MG CAP PO SCH (12:22)
--- NOTE | 2017-03-19 14:21 | PRG ---
DATE OF SERVICE: 03/19/2017 SUBJECTIVE: Marsha Iqbal's buttock abscess looks very good. Less induration and less redness. W ound VAC once approved she can go home today from a surgical standpoint. She can be started on oral antibiotics. She should follow up in my office in 2-3 weeks.
[2017-03-19] MEDS: Simvastatin 40 MG TAB PO SCH (20:27)
[2017-03-19] MEDS: Vancomycin HCl 750 MG in Sodium Chloride 0.9% 250 ML 250 ML IVPB SCH (20:27)
[2017-03-20] MEDS: Piperacillin/Tazobactam 3.375 GM in Sodium Chloride 0.9% 100 ML IVPB SCH ×5 (02:53→20:54)
[2017-03-20] MEDS: Heparin 5,000 UNITS/ML VIAL SC SCH ×2 (08:28→20:54)
[2017-03-20] MEDS: Saccharomyces boulardii 250 MG CAP PO SCH (08:29)
[2017-03-20] MEDS: Vancomycin HCl 750 MG in Sodium Chloride 0.9% 250 ML 250 ML IVPB SCH ×2 (09:02→20:54)
[2017-03-20] MEDS: Polyethylene Glycol 3350 17 GM Packet PO SCH ×2 (09:06→20:54)
--- NOTE | 2017-03-20 11:22 | DIS ---
DATE OF ADMISSION: 03/15/2017 DATE OF DISCHARGE: 03/20/2017 PRIMARY CARE PHYSICIAN: Dr. Boubacar Marie. DISCHARGE DISPOSITION: Home. PRIMARY DISCHARGE DIAGNOSES: 1. Sepsis. 2. Buttock abscess, status post incision and drainage. 3. Hyponatremia. 4. Blast cells. SECONDARY DISCHARGE DIAGNOSES: 1. Microcytic anemia. 2. Hypertension. 3. Dyslipidemia. PRIMARY PROCEDURE/OPERATION: I\T\D performed by Dr. Tucker. RADIOLOGICAL INVESTIGATION: Pelvis CT scan. SIGNIFICANT LABORATORY DATA: Hemoglobin 8.9, blast cell was 27, creatinine 0.89, LDH 481, B12 and f olate normal. Liver enzymes normal. Electrolytes normal. Blood culture negative. DISCHARGE MEDICATIONS: Doxycycline 100 mg twice daily for 10 days, Augmentin 875/125 one tablet p.o . q.12 hours for 10 days, Florastor 250 mg p.o. daily for 10 days, aspirin 325 mg p.o. daily, Celexa 20 mg p.o. daily, hydrochlorothiazide 25 mg p.o. daily, irbesartan 150 mg p.o. daily, Procardia 60 mg p.o. daily, omeprazole 40 mg p.o. daily, potassium chloride 10 mEq p.o. daily, Inderal-LA 80 mg p .o. daily, Zocor 40 mg p.o. at bedtime, Detrol 4 mg p.o. daily. CONTRAINDICATIONS: None. CODE STATUS: FULL CODE. INPATIENT CONSULTANTS: Dr. Raines was consulted while in hospital. Dr. Tucker was consulted while in hospital. TEST RESULTS PENDING ON DISCHARGE: None. ALLERGIES: No known drug allergy. DISCHARGE PLAN: Post hospital, the patient has appointment with Dr. Raines on 03/26/2017, patient will follow up with Dr. Tucker in 2-3 weeks. The patient will make appointment with primary care ph ysician in 1 week. HOSPITAL COURSE: A 71-year-old female with the above mentioned medical problems who was admitted by Dr. Madden. Please see his H\T\P for further details. The patient was admitted for buttock absc ess with surrounding cellulitis. The patient had drainage of pus like material through the abscess. This patient required temporary I\T\D in the emergency room and subsequently the patient required I\T\D by Dr. Tucker in operation theatre. Subsequently, patient required wound VAC. The patient's pain was controlled with pain medication. We gave her vancomycin and Zosyn while in hospital. On d ischarge, we changed to Augmentin and doxycycline for another [address] Tucker cleared her for d ischarge with the wound VAC therapy. The patient will follow up with Dr. Tucker in 2-3 weeks. Patient's peripheral smear was showing blast cell and that is why we consulted Hematology. Hematolo merlin recommended that this was likely related with infection, but they gave her close followup appoint ment in the clinic. At this point, there is no further plan from Hematology point of view. Wound VAC is already arranged. The patient also excited to go home today. Her pain is well control led. She is afebrile. She is ambulatory. The patient has given all new medication prescriptions t o her pharmacy. Patient is seen and examined at bedside today. Plan of care discussed with the patient's at bedside. Her hyponatremia resolved to normal. PHYSICAL EXAMINATION: VITAL SIGNS: Currently temperature 98.9, pulse 78, respiratory rate 18, saturation 92% on room air, blood pressure 113/72, weight 141 pounds. GENERAL: The patient is currently alert, awake, no acute distress. HEAD: Normocephalic, atraumatic. EYES: Pupils round, reactive to light. LUNGS: Clear to auscultation without any rhonchi or rales. CARDIAC: S1, S2 regular without any murmur. ABDOMEN: Soft and benign. EXTREMITIES: No edema. NEUROLOGIC: Nonfocal examination. Overall, this patient is medically stable for discharge today.
[2017-03-20] MEDS: Ondansetron HCl/PF 4 MG/2 ML Vial IVP PRN ×2 (12:06→20:54)
[2017-03-20] MEDS ORDERED: Dicyclomine HCl 20 mg/2 ml Ampule IM PRN (12:13)
--- NOTE | 2017-03-20 12:24 | PDOC.PN ---
- Subjective Encounter Start Date: 03/20/17 Encounter Start Time: 10:30 this morning pt was doing well and wanted to go home, later she was having abdominal pain periumbilical and radiating to back, no fever - Objective MAR Reviewed: Yes Vital Signs & Weight: Vital Signs (12 hours) Temp Pulse Resp BP Pulse Ox 03/20/17 12:00 98 F 90 20 144/82 H 97 03/20/17 09:41 98.9 F 78 18 03/20/17 08:05 98.9 F 78 18 113/72 92 L 03/20/17 04:41 98.9 F 82 18 116/63 95 Weight Admit Weight 141 lb Weight 141 lb 1.533 oz I&O: 03/19/17 03/20/17 03/21/17 06:59 06:59 06:59 Intake Total 1880 1520 Balance 1880 1520 Result Diagrams: 03/19/17 07:16 03/19/17 07:16 Phys Exam - Physical Examination Constitutional: NAD HEENT: PERRLA, moist MMs, sclera anicteric Neck: no JVD, supple Respiratory: no wheezing, no rales, no rhonchi Cardiovascular: RRR, no significant murmur, no rub Gastrointestinal: soft, non-tender, no distention, positive bowel sounds Musculoskeletal: no edema, pulses present Neurological: non-focal, normal sensation Lymphatic: no nodes Psychiatric: normal affect, A&O x 3 Skin: normal turgor Deviation from normal: wound vac in place Dx/Plan (1) Abscess of buttock Code(s): L02.31 - CUTANEOUS ABSCESS OF BUTTOCK Status: Acute Comment: s/p I & D (2) Hyponatremia Code(s): E87.1 - HYPO-OSMOLALITY AND HYPONATREMIA Status: Acute (3) Sepsis Code(s): A41.9 - SEPSIS, UNSPECIFIED ORGANISM Status: Acute (4) Dyslipidemia Code(s): E78.5 - HYPERLIPIDEMIA, UNSPECIFIED Status: Chronic (5) Hypertension Code(s): I10 - ESSENTIAL (PRIMARY) HYPERTENSION (6) Macrocytic anemia Code(s): D53.9 - NUTRITIONAL ANEMIA, UNSPECIFIED Status: Chronic - Plan cont current plan of care, plan discussed w/ family, continue antibiotics, manager social work * as per hematology, pt is stable for discharge and outpt follow up * for abdominal pain, will get CT abdomen and get blood test to see any acute pathology * wound vac is approved * if today's investigation unremarkable and pain resolve, will consider discharge later today * will change to augmentin and doxy on discharge. Review of Systems - Review of Systems ENT: negative: Ear Pain, Ear Discharge, Nose Pain, Nose Discharge, Nose Congestion, Mouth Pain, Mouth Swelling, Throat Pain, Throat Swelling, Other Respiratory: negative: Cough, Dry, Shortness of Breath, Hemoptysis, SOB with Excertion, Pleuritic Pain, Sputum, Wheezing Cardiovascular: negative: Chest Pain, Palpitations, Orthopnea, Paroxysmal Noc. Dyspnea, Edema, Light Headedness, Other Gastrointestinal: negative: Nausea, Vomiting, Abdominal Pain, Diarrhea, Constipation, Melena, Hematochezia, Other Genitourinary: negative: Dysuria, Frequency, Incontinence, Hematuria, Retention , Other Musculoskeletal: negative: Neck Pain, Shoulder Pain, Arm Pain, Back Pain, Hand Pain, Leg Pain, Foot Pain, Other Skin: negative: Rash, Lesions, Guillermo, Bruising, Other - Medications/Allergies Allergies/Adverse Reactions: Allergies Allergy/AdvReac Type Severity Reaction Status Date / Time No Known Allergies Allergy Verified 03/15/17 22:21 Medications: Current Medications Acetaminophen (Tylenol) 1,000 mg PO Q6H PRN PRN Reason: Moderate to Severe Pain (6-10) Hydrocodone Bitart/Acetaminophen ([place] 5/325) 1 tab PO Q4H PRN PRN Reason: Moderate Pain (4-6) Last Admin: 03/17/17 09:32 Dose: 1 tab Al Hydroxide/Mg Hydroxide (Maalox) 15 ml PO Q4H PRN PRN Reason: Heartburn or Indigestion Artificial Tears (Tears Naturale) 0 drop EA EYE PRN PRN PRN Reason: Dry Eyes Bisacodyl (Dulcolax) 10 mg [place] Q8H PRN PRN Reason: Constipation Citalopram Hydrobromide (Celexa) 20 mg PO DAILY [facility] Last Admin: 03/20/17 08:29 Dose: 20 mg Dicyclomine HCl (Bentyl) 10 mg IM QID PRN PRN Reason: GI Cramping Guaifenesin (Robitussin Sf) 200 mg PO Q4H PRN PRN Reason: Cough Last Admin: 03/17/17 19:06 Dose: 200 mg Heparin Sodium (Porcine) (Heparin) 5,000 units SC BID [facility] Last Admin: 03/20/17 08:28 Dose: 5,000 units Hydralazine HCl (Apresoline) 5 mg SLOW IVP Q4H PRN PRN Reason: SBP Greater Than 170 Piperacillin Sod/Tazobactam (Sod 3.375 gm/ Sodium Chloride) 100 mls @ 200 mls/ hr IVPB 0300,0900,1500,2100 [facility] Last Admin: 03/20/17 11:06 Dose: 100 mls Vancomycin HCl 750 mg/ Sodium (Chloride) 250 mls @ 250 mls/hr IVPB 0800,2000 [facility] Last Admin: 03/20/17 09:02 Dose: 250 mls Ibuprofen (Motrin) 600 mg PO Q6H PRN PRN Reason: Pain 4-6 Last Admin: 03/18/17 17:10 Dose: 600 mg Loperamide HCl (Imodium) 2 mg PO PRN PRN PRN Reason: Diarrhea/Loose Stools Magnesium Hydroxide (Milk Of Magnesium) 30 ml PO DAILYPRN PRN PRN Reason: Constipation Mineral Oil/White Petrolatum (Eucerin Cream) 0 gm TOP BIDPRN PRN PRN Reason: Dry Skin Miscellaneous Medication (Pharmacy To Dose) 1 each IVPB PRN PRN PRN Reason: RPH TO DOSE VANC Morphine Sulfate (Morphine Sulfate) 4 mg SLOW IVP Q4H PRN PRN Reason: Severe Pain (7-10) Last Admin: 03/16/17 15:51 Dose: 4 mg Ondansetron HCl (Zofran Odt) 4 mg PO Q6H PRN PRN Reason: Nausea/Vomiting Ondansetron HCl (Zofran) 4 mg IVP Q6H PRN PRN Reason: Nausea/Vomiting Last Admin: 03/20/17 12:06 Dose: 4 mg Pantoprazole Sodium (Protonix) 40 mg PO DAILY [facility] Last Admin: 03/20/17 08:29 Dose: 40 mg Polyethylene Glycol (Miralax) 17 gm PO BID [facility] Last Admin: 03/20/17 09:06 Dose: Not Given Saccharomyces Boulardii (Florastor) 250 mg PO DAILY [facility] Last Admin: 03/20/17 08:29 Dose: 250 mg Senna (Senokot) 2 tab PO HSPRN PRN PRN Reason: Constipation Simvastatin (Zocor) 40 mg PO HS [facility] Last Admin: 03/19/17 20:27 Dose: 40 mg Sodium Chloride ([place] Nasal [place] 0.65%) 0 ml EA NARE QIDPRN PRN PRN Reason: Nasal Congestion Tolterodine Tartrate (Detrol La) 4 mg PO DAILY [facility] Last Admin: 03/19/17 12:22 Dose: 4 mg Tramadol HCl (Ultram) 50 mg PO Q6H PRN PRN Reason: Mild-Moderate Pain (1-5) Tramadol HCl (Ultram) 100 mg PO Q6H PRN PRN Reason: Moderate to Severe Pain (6-10) Last Admin: 03/19/17 08:24 Dose: 100 mg
[2017-03-20 12:52] LABS: ALT (SGPT) 10 U/L (8-55); AST (SGOT) 13 U/L (5-34); Alkaline Phosphatase 44 U/L (40-150); Anion Gap 15 mmol/L (10-20); BUN (Urea Nitrogen) 6 mg/dL (9.8-20.1); Bilirubin, Total 0.2 mg/dL (0.2-1.2); Calc. Creatinine Clearance 62 mL/min (70-130); Calcium 8.6 mg/dL (7.8-10.44); Carbon Dioxide 23 mmol/L (23-31); Chloride 107 mmol/L (98-107); Estimated GFR-MDRD 66; Globulin 2.7 g/dL (2.4-3.5); Lipase 12 U/L (8-78); Protein, Total 5.9 g/dL (6.0-8.3)
[2017-03-20 13:00] LABS: Anisocytosis MODERATE=16-30 cells (100X) (0-5/hpf); Band 9 % (5-11); Blast 17 % (0-0); Hematocrit 26.9 % (36.0-47.0); Mean Platelet Volume 10.9 fL (7.4-10.4); Metamyelocyte 5 % (0-0); Myelocyte 5 % (0-0); Neutrophil 46 % (42-75); Polychromasia MODERATE = 3-4 cells (100X) (0-2/hpf); Red Blood Cell (RBC) Count 2.55 mill/uL (4.20-5.40); Tear Drops MODERATE= 6-15 cells (100X) (0-1/hpf); White Blood Cell (WBC) Count 16.5 thou/uL (4.8-10.8)
[2017-03-20] MEDS ORDERED: ISOVUE-370 76%-LOCM 1 ML ONE (14:11)
[2017-03-20] MEDS ORDERED: Acetaminophen 1,000 MG in Premix Bag 1 BAG IVPB PRN (15:27)
[2017-03-20] MEDS ORDERED: Acetaminophen 1,000 MG in Premix Bag 1 BAG IVPB SCH (15:30)
[2017-03-20] MEDS ORDERED: Ketorolac Tromethamine 30 MG/ML VIAL IVP SCH (15:30)
--- NOTE | 2017-03-20 16:25 | CT ---
CT ABDOMEN AND PELVIS WITH CONTRAST: HISTORY: Left side abdominal pain that started earlier today. The patient was here for an abscess on the but tock. COMPARISON: CT pelvis 03/15/17. FINDINGS: The lung bases are clear. There is some linear atelectasis within the right middle lobe and left lo wer lobe. No pericardial effusion. Hypodensity in hepatic segment 2, likely a cyst. There is focal fat involving the falciform ligamen t. There is interposition of bowel within the liver and the anterior abdominal wall. There is mild edema within the gallbladder wall. There is abnormal edema of the left and right adre nal glands with concern for possible hemorrhage. There is an aortic stent graft which is patent. The aorta, however, is somewhat narrow. The common bile duct measures 8 mm, upper limits of normal for this patient's age. There is l obulation of the kidneys. Left interpolar hyperdensity measures fluid attenuation, likely a cyst. No hydronephrosis. The appendix is visualized and is normal. There are abnormally enlarged right inguinal lymph nodes and common femoral lymph nodes. There appe ars to be a sinus tract involving the right posterior gluteal soft tissues. There is a left-sided direct inguinal hernia containing fat. Chronic-appearing compression fractures present at T12. IMPRESSION: 1. Abnormal edema and what appears to be hemorrhage within both adrenal glands. Recommend correlat ion for acute adrenal crises. This could be due to underlying illness. Close followup recommended. 2. Narrowing of the abdominal aorta at the stent graft to approximately below what would be expecte d to be 40% of its normal caliber with patent iliac arteries. 3. Likely reactive adenopathy of the inguinal area of the right inguinal lymph hiram chain. 4. Draining sinus tract along the right gluteal posterior soft tissues. 5. Mild dilatation of the common bile duct with some low-grade pericholecystic fluid. Findings can be seen with distal choledocholithiasis. Recommend correlation with liver function tests. Kim c ystitis is also a possibility. Liver function test correlation is recommended. 6. Concern for possible soft tissue mass in the cecal apex versus a collection of nongaseous stool. Followup colonoscopy is recommended. This area measures 4.1 x 2.9 x 4 cm (transverse x AP x CC) b est seen on series 2, images 45-55. 7. Fat-containing left-sided direct inguinal hernia. 8. Likely reactive right inguinal lymph nodes. POS: [facility]
--- NOTE | 2017-03-20 17:06 | EKG ---
Test Reason : PREOP Blood Pressure : / mmHG Vent. Rate : 086 BPM Atrial Rate : 086 BPM P-R Int : 166 ms QRS Dur : 090 ms QT Int : 398 ms P-R-T Axes : 062 050 033 degrees QTc Int : 476 ms Sinus rhythm with Premature atrial complexes Otherwise normal ECG When compared with ECG of 07-OCT-2005 01:25, Premature atrial complexes are now Present Questionable change in QRS axis QT has lengthened Confirmed by Gregg PHELPS ([id number]) on 03/20/2017 5:06:00 PM Referred By: JEANA Confirmed By:Gregg PHELPS
--- NOTE | 2017-03-20 17:46 | PRG ---
DATE OF SERVICE: 03/20/2017 SUBJECTIVE: Ms. Marsha Iqbal was to go home today, but experienced acute onset of left upper quad rant pain with back radiation. She has had a flank hernia repaired in the past. She has an aortic stent placed at present. She underwent a CAT scan of the abdomen and pelvis with IV contrast reveal ing some fatty stranding around the adrenal glands. No definite signs of hemorrhage. There may be some pericholecystic fluid, but this is minimal and there are no inflammatory changes. There is no ductal dilatation. Bile duct is 8 mm, upper normal size. Liver function tests obtained today are n ormal. Atelectasis was present on the CAT scan. The cecum was noted to be in the upper midline abd omen with a normal appearing appendix to the left of midline. Patient, however, is in quite a bit o f pain. OBJECTIVE: LUNGS: Clear to auscultation. CARDIAC: Regular rate and rhythm without murmur or gallop. ABDOMEN: Nondistended. Bowel sounds are present. She has tenderness with guarding the left upper quadrant, subcostal. ASSESSMENT AND PLAN: Abdominal plan of uncertain etiology. CAT scan does not reveal any significan t findings to account for this pain. We will give her Toradol IV and Ofirmev IV. She has morphine, it is ordered as indicated. We will follow her clinically. We will repeat her lab in the morning. Today, her white count is 16 and hemoglobin 8, which is stable for her. She is undergoing a lacey p for anemia. CAT scan did reveal ileocecal density. Colonoscopy was recommended, but this is not accounting for pain. This should be done at a later time.
[2017-03-20] MEDS: Tolterodine Tartrate LA 4 MG CAP PO SCH (18:50)
[2017-03-20] MEDS: Simvastatin 40 MG TAB PO SCH (20:53)
[2017-03-20] MEDS: TROSPIUM 20 MG TABLET PO SCH (21:54)
[2017-03-21] MEDS: Piperacillin/Tazobactam 3.375 GM in Sodium Chloride 0.9% 100 ML IVPB SCH ×4 (02:40→21:02)
[2017-03-21 06:49] LABS: Band 6 % (5-11); Blast 17 % (0-0); Hematocrit 25.5 % (36.0-47.0); Mean Platelet Volume 10.9 fL (7.4-10.4); Myelocyte 3 % (0-0); Neutrophil 68 % (42-75); Nucleated RBC 2 % (0); Ovalocytes SLIGHT = 2-5 cells (100X) (0-1/hpf); Red Blood Cell (RBC) Count 2.44 mill/uL (4.20-5.40); Tear Drops SLIGHT = 2-5 cells (100X) (0-1/hpf)
[2017-03-21] MEDS: Ondansetron HCl/PF 4 MG/2 ML Vial IVP PRN ×3 (06:58→21:09)
[2017-03-21 06:59] LABS: ALT (SGPT) 15 U/L (8-55); AST (SGOT) 18 U/L (5-34); Alkaline Phosphatase 42 U/L (40-150); Anion Gap 18 mmol/L (10-20); BUN (Urea Nitrogen) 9 mg/dL (9.8-20.1); Bilirubin, Total 0.2 mg/dL (0.2-1.2); Calc. Creatinine Clearance 57 mL/min (70-130); Calcium 8.7 mg/dL (7.8-10.44); Carbon Dioxide 22 mmol/L (23-31); Chloride 103 mmol/L (98-107); Estimated GFR-MDRD 60; Globulin 2.7 g/dL (2.4-3.5)
[2017-03-21] MEDS ORDERED: Potassium Chloride 20 MEQ TAB PO SCH (07:45)
--- NOTE | 2017-03-21 07:58 | PRG ---
DATE OF SERVICE: 03/21/2017 Marsha Iqbal is complaining of pain, left subcostal with back radiation still. It is not as sever e as yesterday. She did have an emesis episode this morning, but not yesterday. She does not feel like she has a distended abdomen. VITAL SIGNS: Temperature 97 degrees, heart rate 94, 135/75. LABORATORY: This morning her white blood cell count is up to 27,000, hemoglobin 8.1. Differential unremarkable. Basic metabolic profile essentially unremarkable except for potassium of 2.6. LUNGS: Clear to auscultation, diminished at the base. ABDOMEN: Soft with mild tenderness left upper quadrant, but there is no rebound or peritoneal signs . Bowel sounds are present and normal. Abdomen is not tympanitic, nor is it distended. EXTREMITIES: Unremarkable. ASSESSMENT AND PLAN: Atelectasis, possible early pneumonia. I do not think she has intraabdominal pathology. Gastric ulcer is a possibility. We will continue proton pump inhibitors. Continue regu lar diet and encourage her to use incentive spirometer, be up in bed most of the day and ambulating frequently in the hallways. Hopefully this will improve such that she can be discharged home tomorr ow on oral antibiotics. Will obtain PA and lateral chest x-ray and 2 view abdomen today.
[2017-03-21] MEDS ORDERED: Potassium Chloride 40 MEQ in Sodium Chloride 0.9% 500 ML IVPB SCH (08:00)
[2017-03-21] MEDS: HYDROcodone/Acetaminophen 5/325 mg Tablet PO PRN (08:19)
[2017-03-21] MEDS: Saccharomyces boulardii 250 MG CAP PO SCH (09:54)
[2017-03-21] MEDS: Heparin 5,000 UNITS/ML VIAL SC SCH ×2 (09:54→21:05)
[2017-03-21] MEDS: TROSPIUM 20 MG TABLET PO SCH ×2 (09:54→21:06)
[2017-03-21] MEDS: Polyethylene Glycol 3350 17 GM Packet PO SCH ×3 (09:55→21:02)
[2017-03-21] MEDS: Vancomycin HCl 500 MG in Sodium Chloride 0.9% 100 ML IVPB SCH ×2 (10:13→21:02)
--- NOTE | 2017-03-21 10:16 | RAD ---
SUPINE AND UPRIGHT VIEWS OF THE ABDOMEN: History: Left upper quadrant abdominal pain. FINDINGS: Radiopaque contrast is seen in the small bowel and colon. No dilated loops of bowel seen. No evidenc e of bowel obstruction seen. No evidence of free intraperitoneal air is seen. Some dextroscoliosis centered at the L2 level. IMPRESSION: Unremarkable two views abdomen. POS: [facility]
--- NOTE | 2017-03-21 10:16 | RAD ---
UPRIGHT PA AND LATERAL CHEST TWO VIEWS: HISTORY: A 71-year-old female with left upper quadrant abdominal pain and elevated white blood cell count. FINDINGS: Cardiomegaly with right hemidiaphragm elevation. Chronic horizontal linear and parenchymal changes in the right mid and lower lung zones and left lower lung zone. Atherosclerotic ectatic changes of the aorta, which have progressed from the prior old study of 01/30/2006. IMPRESSION: 1. Stable appearing right hemidiaphragm elevation and increased mostly horizontal linear and parenc hymal changes in the mid and lower lung zones. 2. Atherosclerotic ectatic changes of the aorta, which have worsened from 2006. 3. No confluent pneumonia, overt edema, or pleural effusion. 4. No free intraperitoneal air. POS: [facility]
[2017-03-21] MEDS: Vancomycin HCl 750 MG in Sodium Chloride 0.9% 250 ML 250 ML IVPB SCH (10:40)
[2017-03-21 10:46] LABS: Magnesium 1.6 mg/dL (1.6-2.6); Phosphorus 3.2 mg/dL (2.3-4.7)
--- NOTE | 2017-03-21 12:10 | PDOC.PN ---
- Subjective Encounter Start Date: 03/21/17 Encounter Start Time: 07:30 pt has vague abdominal discomfort, no fever, no vomiting - Objective MAR Reviewed: Yes Vital Signs & Weight: Vital Signs (12 hours) Temp Pulse Resp BP Pulse Ox 03/21/17 12:03 98.3 F 100 16 112/76 95 03/21/17 08:15 98.0 F 100 18 148/83 H 92 L 03/21/17 04:45 97.7 F 94 16 135/75 91 L 03/21/17 00:32 97.7 F 88 16 125/66 91 L Weight Admit Weight 141 lb Weight 141 lb 1.533 oz I&O: 03/20/17 03/21/17 03/22/17 06:59 06:59 06:59 Intake Total 1520 1160 Balance 1520 1160 Result Diagrams: 03/21/17 05:36 03/21/17 05:36 Radiology Reviewed by me: Yes (chest xray, abdomen xray, CT abdomen) Phys Exam - Physical Examination Constitutional: NAD HEENT: PERRLA, moist MMs, sclera anicteric Neck: no JVD, supple Respiratory: no wheezing, no rales, no rhonchi Cardiovascular: RRR, no significant murmur, no rub Gastrointestinal: soft, no distention, positive bowel sounds vague discomfort Musculoskeletal: no edema, pulses present Neurological: non-focal, normal sensation, moves all 4 limbs Psychiatric: normal affect Skin: normal turgor Deviation from normal: wound vac in place Dx/Plan (1) Abscess of buttock Code(s): L02.31 - CUTANEOUS ABSCESS OF BUTTOCK Status: Acute Comment: s/p I & D (2) Hyponatremia Code(s): E87.1 - HYPO-OSMOLALITY AND HYPONATREMIA Status: Acute (3) Sepsis Code(s): A41.9 - SEPSIS, UNSPECIFIED ORGANISM Status: Acute (4) Dyslipidemia Code(s): E78.5 - HYPERLIPIDEMIA, UNSPECIFIED Status: Chronic (5) Hypertension Code(s): I10 - ESSENTIAL (PRIMARY) HYPERTENSION (6) Macrocytic anemia Code(s): D53.9 - NUTRITIONAL ANEMIA, UNSPECIFIED Status: Chronic - Plan cont current plan of care, plan discussed w/ family, continue antibiotics * at this point pt's CT abdomen finding does not explain her abdominal pain but she is improving with symptoms treatment * will replace potassium * Mag and phos is normal * blast cell is still worry but she will follow up with dr preston * today will observe, and if her pain controlled will consider discharge tomorrow * dr castillo already evaluated and nothing surgical at this point * her random cortisol is normal * medication reviewed as below * symptomatic treatment. Review of Systems - Review of Systems ENT: negative: Ear Pain, Ear Discharge, Nose Pain, Nose Discharge, Nose Congestion, Mouth Pain, Mouth Swelling, Throat Pain, Throat Swelling, Other Respiratory: negative: Cough, Dry, Shortness of Breath, Hemoptysis, SOB with Excertion, Pleuritic Pain, Sputum, Wheezing Cardiovascular: negative: Chest Pain, Palpitations, Orthopnea, Paroxysmal Noc. Dyspnea, Edema, Light Headedness, Other Gastrointestinal: Abdominal Pain. negative: Nausea, Vomiting, Diarrhea, Constipation, Melena, Hematochezia, Other Genitourinary: negative: Dysuria, Frequency, Incontinence, Hematuria, Retention , Other Musculoskeletal: negative: Neck Pain, Shoulder Pain, Arm Pain, Back Pain, Hand Pain, Leg Pain, Foot Pain, Other Skin: negative: Rash, Lesions, Guillermo, Bruising, Other - Medications/Allergies Allergies/Adverse Reactions: Allergies Allergy/AdvReac Type Severity Reaction Status Date / Time No Known Allergies Allergy Verified 03/15/17 22:21 Medications: Current Medications Acetaminophen (Tylenol) 1,000 mg PO Q6H PRN PRN Reason: Moderate to Severe Pain (6-10) Hydrocodone Bitart/Acetaminophen ([place] 5/325) 1 tab PO Q4H PRN PRN Reason: Moderate Pain (4-6) Last Admin: 03/21/17 08:19 Dose: 1 tab Al Hydroxide/Mg Hydroxide (Maalox) 15 ml PO Q4H PRN PRN Reason: Heartburn or Indigestion Artificial Tears (Tears Naturale) 0 drop EA EYE PRN PRN PRN Reason: Dry Eyes Bisacodyl (Dulcolax) 10 mg NV Q8H PRN PRN Reason: Constipation Citalopram Hydrobromide (Celexa) 20 mg PO DAILY TRA[facility] Last Admin: 03/21/17 09:54 Dose: 20 mg Dicyclomine HCl (Bentyl) 10 mg IM QID PRN PRN Reason: GI Cramping Guaifenesin (Robitussin Sf) 200 mg PO Q4H PRN PRN Reason: Cough Last Admin: 03/17/17 19:06 Dose: 200 mg Heparin Sodium (Porcine) (Heparin) 5,000 units SC BID [facility] Last Admin: 03/21/17 09:54 Dose: 5,000 units Hydralazine HCl (Apresoline) 5 mg SLOW IVP Q4H PRN PRN Reason: SBP Greater Than 170 Piperacillin Sod/Tazobactam (Sod 3.375 gm/ Sodium Chloride) 100 mls @ 200 mls/ hr IVPB 0300,0900,1500,2100 [facility] Last Admin: 03/21/17 10:22 Dose: 100 mls Acetaminophen 1,000 mg/ Device 100 mls @ 400 mls/hr IVPB ONE [facility] Stop: 03/21/17 15:31 Last Admin: 03/20/17 16:16 Dose: 100 mls Acetaminophen 1,000 mg/ Device 100 mls @ 400 mls/hr IVPB Q6H PRN PRN Reason: Fever/Mild Pain Stop: 03/21/17 15:28 Potassium Chloride 40 meq/ (Sodium Chloride) 520 mls @ 130 mls/hr IVPB NOW [facility] Stop: 03/21/17 13:00 Last Admin: 03/21/17 10:11 Dose: 520 mls Vancomycin HCl 500 mg/ Sodium (Chloride) 100 mls @ 100 mls/hr IVPB 0900,2100 [facility] Last Admin: 03/21/17 10:13 Dose: 100 mls Ibuprofen (Motrin) 600 mg PO Q6H PRN PRN Reason: Pain 4-6 Last Admin: 03/18/17 17:10 Dose: 600 mg Ketorolac Tromethamine (Toradol) 30 mg IVP Q6H PRN PRN Reason: Pain Stop: 03/25/17 15:28 Magnesium Hydroxide (Milk Of Magnesium) 30 ml PO DAILYPRN PRN PRN Reason: Constipation Mineral Oil/White Petrolatum (Eucerin Cream) 0 gm TOP BIDPRN PRN PRN Reason: Dry Skin Miscellaneous Medication (Pharmacy To Dose) 1 each IVPB PRN PRN PRN Reason: RPH TO DOSE VANC Morphine Sulfate (Morphine Sulfate) 4 mg SLOW IVP Q4H PRN PRN Reason: Severe Pain (7-10) Last Admin: 03/21/17 11:43 Dose: 4 mg Ondansetron HCl (Zofran Odt) 4 mg PO Q6H PRN PRN Reason: Nausea/Vomiting Ondansetron HCl (Zofran) 4 mg IVP Q6H PRN PRN Reason: Nausea/Vomiting Last Admin: 03/21/17 06:58 Dose: 4 mg Pantoprazole Sodium (Protonix) 40 mg PO DAILY [facility] Last Admin: 03/21/17 09:54 Dose: 40 mg Pantoprazole Sodium (Protonix) 40 mg IVP 2100 [facility] Polyethylene Glycol (Miralax) 17 gm PO BID [facility] Last Admin: 03/21/17 09:55 Dose: Not Given Saccharomyces Boulardii (Florastor) 250 mg PO DAILY [facility] Last Admin: 03/21/17 09:54 Dose: 250 mg Senna (Senokot) 2 tab PO HSPRN PRN PRN Reason: Constipation Simvastatin (Zocor) 40 mg PO HS [facility] Last Admin: 03/20/17 20:53 Dose: 40 mg Sodium Chloride ([place] Nasal [place] 0.65%) 0 ml EA NARE QIDPRN PRN PRN Reason: Nasal Congestion Tramadol HCl (Ultram) 50 mg PO Q6H PRN PRN Reason: Mild-Moderate Pain (1-5) Tramadol HCl (Ultram) 100 mg PO Q6H PRN PRN Reason: Moderate to Severe Pain (6-10) Last Admin: 03/19/17 08:24 Dose: 100 mg Trospium (Trospium Chloride) 20 mg PO BID [facility] Last Admin: 03/21/17 09:54 Dose: 20 mg
[2017-03-21] MEDS: Ketorolac Tromethamine 30 MG/ML VIAL IVP PRN (15:34)
[2017-03-21] MEDS: Pantoprazole 40 MG VIAL IVP SCH (21:05)
[2017-03-21] MEDS: Simvastatin 40 MG TAB PO SCH (21:05)
[2017-03-22] MEDS: Sodium Chloride 0.9% 1,000 ML IV SCH ×3 (01:58→22:08)
[2017-03-22] MEDS: Piperacillin/Tazobactam 3.375 GM in Sodium Chloride 0.9% 100 ML IVPB SCH ×4 (02:32→20:57)
[2017-03-22 06:25] LABS: ALT (SGPT) 18 U/L (8-55); AST (SGOT) 20 U/L (5-34); Alkaline Phosphatase 51 U/L (40-150); Anion Gap 13 mmol/L (10-20); BUN (Urea Nitrogen) 7 mg/dL (9.8-20.1); Bilirubin, Total 0.3 mg/dL (0.2-1.2); Calc. Creatinine Clearance 66 mL/min (70-130); Calcium 8.6 mg/dL (7.8-10.44); Carbon Dioxide 22 mmol/L (23-31); Chloride 106 mmol/L (98-107); Estimated GFR-MDRD 71; Globulin 2.8 g/dL (2.4-3.5); Protein, Total 6.1 g/dL (6.0-8.3)
[2017-03-22 06:26] LABS: Band 2 % (5-11); Blast 9 % (0-0); Hematocrit 26.2 % (36.0-47.0); Mean Platelet Volume 10.5 fL (7.4-10.4); Metamyelocyte 3 % (0-0); Myelocyte 1 % (0-0); Neutrophil 75 % (42-75); Nucleated RBC 1 % (0); Ovalocytes SLIGHT = 2-5 cells (100X) (0-1/hpf); Polychromasia SLIGHT = 2-3 cells (100X) (0-2/hpf); Red Blood Cell (RBC) Count 2.47 mill/uL (4.20-5.40); Tear Drops SLIGHT = 2-5 cells (100X) (0-1/hpf); White Blood Cell (WBC) Count 21.5 thou/uL (4.8-10.8)
[2017-03-22] MEDS ORDERED: Iopamidol 370 76% 100 ML VIAL ONE (08:47)
[2017-03-22] MEDS: Saccharomyces boulardii 250 MG CAP PO SCH (09:24)
[2017-03-22] MEDS: Polyethylene Glycol 3350 17 GM Packet PO SCH ×3 (09:25→21:10)
--- NOTE | 2017-03-22 11:13 | PDOC.PN ---
- Subjective Encounter Start Date: 03/22/17 Encounter Start Time: 06:45 last night pt was tachycardic, still this morning has tachycardia, feels as if she will through up, no chest pain, no palpitation, still has left flank pain - Objective MAR Reviewed: Yes Vital Signs & Weight: Vital Signs (12 hours) Temp Pulse Resp BP Pulse Ox 03/22/17 09:29 98.2 F 139 H 22 H 95 03/22/17 07:10 98.2 F 139 H 22 H 131/85 95 03/22/17 04:10 98.7 F 142 H 19 103/70 93 L 03/22/17 00:00 98.4 F 140 H 20 127/80 91 L Weight Admit Weight 141 lb Weight 141 lb 1.533 oz I&O: 03/21/17 03/22/17 03/23/17 06:59 06:59 06:59 Intake Total 1160 1450 Output Total 200 Balance 1160 1250 Result Diagrams: 03/22/17 05:51 03/22/17 05:51 Phys Exam - Physical Examination Constitutional: NAD HEENT: PERRLA, moist MMs, sclera anicteric Neck: no JVD, supple Respiratory: no wheezing, no rales, no rhonchi Cardiovascular: RRR, no significant murmur, no rub Gastrointestinal: soft, no distention, positive bowel sounds left side flank and back pain Musculoskeletal: no edema, pulses present Neurological: non-focal, normal sensation Lymphatic: no nodes Psychiatric: normal affect, A&O x 3 Skin: no rash, normal turgor Dx/Plan (1) Abscess of buttock Code(s): L02.31 - CUTANEOUS ABSCESS OF BUTTOCK Status: Acute Comment: s/p I & D (2) Hyponatremia Code(s): E87.1 - HYPO-OSMOLALITY AND HYPONATREMIA Status: Acute (3) Sepsis Code(s): A41.9 - SEPSIS, UNSPECIFIED ORGANISM Status: Acute (4) Dyslipidemia Code(s): E78.5 - HYPERLIPIDEMIA, UNSPECIFIED Status: Chronic (5) Hypertension Code(s): I10 - ESSENTIAL (PRIMARY) HYPERTENSION (6) Macrocytic anemia Code(s): D53.9 - NUTRITIONAL ANEMIA, UNSPECIFIED Status: Chronic - Plan cont current plan of care, plan discussed w/ family, continue antibiotics * will get echo for elevated BNP * will transfer to tele for monitoring for tachycardia * will ge urology consult as pt has finding of adrenal haemorrhage * medication reviewed as below * symptomatic treatment * will monitor labs. * continue vancomycin and zosyn Review of Systems - Review of Systems Constitutional: negative: Fever, Chills, Sweats, Weakness, Malaise, Other Eyes: negative: Pain, Vision Change, Conjunctivae Inflammation, Eyelid Inflammation, Redness, Other ENT: negative: Ear Pain, Ear Discharge, Nose Pain, Nose Discharge, Nose Congestion, Mouth Pain, Mouth Swelling, Throat Pain, Throat Swelling, Other Respiratory: negative: Cough, Dry, Shortness of Breath, Hemoptysis, SOB with Excertion, Pleuritic Pain, Sputum, Wheezing Cardiovascular: negative: Chest Pain, Palpitations, Orthopnea, Paroxysmal Noc. Dyspnea, Edema, Light Headedness, Other Gastrointestinal: Nausea, Abdominal Pain. negative: Vomiting, Diarrhea, Constipation, Melena, Hematochezia, Other Genitourinary: negative: Dysuria, Frequency, Incontinence, Hematuria, Retention , Other Musculoskeletal: negative: Neck Pain, Shoulder Pain, Arm Pain, Back Pain, Hand Pain, Leg Pain, Foot Pain, Other Skin: negative: Rash, Lesions, Guillermo, Bruising, Other - Medications/Allergies Allergies/Adverse Reactions: Allergies Allergy/AdvReac Type Severity Reaction Status Date / Time No Known Allergies Allergy Verified 03/15/17 22:21 Medications: Current Medications Acetaminophen (Tylenol) 1,000 mg PO Q6H PRN PRN Reason: Moderate to Severe Pain (6-10) Hydrocodone Bitart/Acetaminophen ([place] 5/325) 1 tab PO Q4H PRN PRN Reason: Moderate Pain (4-6) Last Admin: 03/21/17 08:19 Dose: 1 tab Al Hydroxide/Mg Hydroxide (Maalox) 15 ml PO Q4H PRN PRN Reason: Heartburn or Indigestion Artificial Tears (Tears Naturale) 0 drop EA EYE PRN PRN PRN Reason: Dry Eyes Bisacodyl (Dulcolax) 10 mg [place] Q8H PRN PRN Reason: Constipation Citalopram Hydrobromide (Celexa) 20 mg PO DAILY [facility] Last Admin: 03/22/17 09:24 Dose: 20 mg Dicyclomine HCl (Bentyl) 10 mg IM QID PRN PRN Reason: GI Cramping Guaifenesin (Robitussin Sf) 200 mg PO Q4H PRN PRN Reason: Cough Last Admin: 03/17/17 19:06 Dose: 200 mg Hydralazine HCl (Apresoline) 5 mg SLOW IVP Q4H PRN PRN Reason: SBP Greater Than 170 Piperacillin Sod/Tazobactam (Sod 3.375 gm/ Sodium Chloride) 100 mls @ 200 mls/ hr IVPB 0300,0900,1500,2100 [facility] Last Admin: 03/22/17 09:19 Dose: 100 mls Vancomycin HCl 500 mg/ Sodium (Chloride) 100 mls @ 100 mls/hr IVPB 0900,2100 [facility] Last Admin: 03/21/17 21:02 Dose: 100 mls Sodium Chloride (Normal Saline 0.9%) 1,000 mls @ 100 mls/hr IV .Q10H [facility] Last Admin: 03/22/17 09:20 Dose: 1,000 mls Ibuprofen (Motrin) 600 mg PO Q6H PRN PRN Reason: Pain 4-6 Last Admin: 03/18/17 17:10 Dose: 600 mg Ketorolac Tromethamine (Toradol) 30 mg IVP Q6H PRN PRN Reason: Pain Stop: 03/25/17 15:28 Last Admin: 03/21/17 15:34 Dose: 30 mg Magnesium Hydroxide (Milk Of Magnesium) 30 ml PO DAILYPRN PRN PRN Reason: Constipation Mineral Oil/White Petrolatum (Eucerin Cream) 0 gm TOP BIDPRN PRN PRN Reason: Dry Skin Miscellaneous Medication (Pharmacy To Dose) 1 each IVPB PRN PRN PRN Reason: RPH TO DOSE VANC Morphine Sulfate (Morphine Sulfate) 4 mg SLOW IVP Q4H PRN PRN Reason: Severe Pain (7-10) Last Admin: 03/22/17 05:11 Dose: 4 mg Ondansetron HCl (Zofran Odt) 4 mg PO Q6H PRN PRN Reason: Nausea/Vomiting Ondansetron HCl (Zofran) 4 mg IVP Q6H PRN PRN Reason: Nausea/Vomiting Last Admin: 03/21/17 21:09 Dose: 4 mg Pantoprazole Sodium (Protonix) 40 mg PO DAILY [facility] Last Admin: 03/22/17 09:24 Dose: 40 mg Pantoprazole Sodium (Protonix) 40 mg IVP 2100 [facility] Last Admin: 03/21/17 21:05 Dose: 40 mg Polyethylene Glycol (Miralax) 17 gm PO BID [facility] Last Admin: 03/22/17 09:25 Dose: 17 gm Saccharomyces Boulardii (Florastor) 250 mg PO DAILY [facility] Last Admin: 03/22/17 09:24 Dose: 250 mg Senna (Senokot) 2 tab PO HSPRN PRN PRN Reason: Constipation Simvastatin (Zocor) 40 mg PO HS [facility] Last Admin: 03/21/17 21:05 Dose: 40 mg Sodium Chloride ([place] Nasal [place] 0.65%) 0 ml EA NARE QIDPRN PRN PRN Reason: Nasal Congestion Tramadol HCl (Ultram) 50 mg PO Q6H PRN PRN Reason: Mild-Moderate Pain (1-5) Tramadol HCl (Ultram) 100 mg PO Q6H PRN PRN Reason: Moderate to Severe Pain (6-10) Last Admin: 03/19/17 08:24 Dose: 100 mg Trospium (Trospium Chloride) 20 mg PO BID [facility] Last Admin: 03/21/17 21:06 Dose: 20 mg
[2017-03-22] MEDS: TROSPIUM 20 MG TABLET PO SCH ×2 (12:36→21:18)
[2017-03-22] MEDS: Heparin 5,000 UNITS/ML VIAL SC SCH (12:37)
[2017-03-22] MEDS: Vancomycin HCl 500 MG in Sodium Chloride 0.9% 100 ML IVPB SCH ×2 (12:53→20:57)
[2017-03-22] MEDS ORDERED: Propranolol HCl LA 60 MG CAP PO SCH (14:45)
[2017-03-22 20:32] LABS: Vancomycin, Trough 15.7 ug/mL
--- NOTE | 2017-03-22 20:47 | RAD ---
SINGLE VIEW OF THE CHEST: 03/22/17 COMPARISON: 10/06/05, 03/21/17. HISTORY: Central line placement. FINDINGS: Single view of the chest shows a normal sized cardiomediastinal silhouette. Linear opacity is seen i n the left lung base which likely represents scarring or atelectasis. There is a right subclavian ce ntral venous catheter with its tip at the superior vena cava. No pneumothorax is seen. There is no evidence of consolidation, mass, or pleural effusion. IMPRESSION: Status post central line placement without evidence of complication. POS: [facility]
[2017-03-22] MEDS: Simvastatin 40 MG TAB PO SCH (20:57)
[2017-03-22] MEDS: Pantoprazole 40 MG VIAL IVP SCH (20:57)
[2017-03-22] MEDS: Diabetic Tussin 200 MG/10 ML UDCUP PO PRN (20:58)
--- NOTE | 2017-03-22 22:05 | OP ---
PREOPERATIVE DIAGNOSIS: Abdominal pain, poor IV access. POSTOPERATIVE DIAGNOSIS: Abdominal pain, poor IV access. PROCEDURE PERFORMED: Right subclavian vein central line. SURGEON: Bridger Tucker M.D. ANESTHESIA: 1% Xylocaine. DESCRIPTION OF PROCEDURE: At the patient's bedside, her right periclavicular area was prepared with chloraprep, draped in routine fashion. A 1% Xylocaine infiltrated into skin and subcutaneous tissu e infraclavicular, and trocar catheter introduced infraclavicular right into the subclavian vein, ad vanced into the J wire, removing the trocar catheter. Seldinger technique used to place a triple melquiades men catheter, removing the J-wire, securing the catheter with 2 interrupted sutures of 3-0 silk and Biopatch sterile dressing applied. Each port aspirated blood and flushed with saline solution. Geovani rile dressing applied. Chest x-ray called for pending.
--- NOTE | 2017-03-22 22:06 | PRG ---
DATE OF SERVICE: 03/22/2017 SUBJECTIVE: Marsha Iqbal is still having abdominal pain; it seems to be localized in her left upp er quadrant. Abdominal x-rays were unremarkable. OBJECTIVE: VITAL SIGNS: 98.2 degrees, heart rate 139, respiratory rate 22. LUNGS: Clear to auscultation. Chest x-ray normal yesterday. CARDIAC: Sinus tachycardia. ABDOMEN: Soft, distended, mild tenderness with mild guarding left upper quadrant, abdomen is soft. She has bowel sounds present. EXTREMITIES: Unremarkable. LABORATORY DATA: Her white count is 21,000, down to 27,000 yesterday. She has 2% bands. Her blast cells are none. CO2 is 22, glucose 119. ASSESSMENT AND PLAN: 1. Abdominal pain of uncertain etiology. Agree with CAT scan. If CAT scan is negative, Gastroente rology consultation will be made for upper endoscopy. Await CAT scan results. Further recommendati on is pending that. 2. Leukocytosis. 3. Blast cells, followed by Dr. Raines, Oncology.
[2017-03-22] MEDS: traMADol HCl 50 MG TAB PO PRN (22:08)
--- NOTE | 2017-03-22 22:49 | CT ---
CT ABDOMEN AND PELVIS WITH CONTRAST: 03/22/17 COMPARISON: 03/20/17. HISTORY: Left upper quadrant abdominal pain and distention. TECHNIQUE: Multiple contiguous axial images were obtained in a CT of the abdomen and pelvis with contrast. PO c ontrast was administered. Coronal reformats were performed. FINDINGS: The liver, gallbladder, kidneys, spleen and pancreas are unremarkable. There is stable stranding phillip nges surrounding the bilateral adrenal glands. The common bile duct is enlarged to 9 mm. this abrupt ly terminates at the region of the ampulla of Vater. The gallbladder is more distended on today's ex am than on the prior examination. The large and small bowel are unremarkable. The patient is status post hysterectomy. The abnormality previously described in the cecum likely represented nonopacified small bowel. Contrast is seen wit hin the large and small bowel on today's examination with a lack of contrast in the right colon near the hepatic flexure. There are prominent right inguinal lymph nodes. There is a sinus tract just to the right of the glut eal crease which is unchanged. No abdominal or pelvic lymphadenopathy are seen. Atherosclerotic calc ifications are seen in the aorta. There are small bilateral pleural effusions with adjacent atelectasis. There is a stable small fat c ontaining left inguinal hernia. Degenerative changes are seen in the spine. Soft tissue anasarca is seen. IMPRESSION: 1. There is biliary dilatation which is nonspecific and could be secondary to cholesterol galls tones which would not be visualized on CT. Correlate with LFTs. This biliary dilatation is relativel y stable compared to the prior exam. 2. Stranding changes surrounding both adrenal glands. This is nonspecific and could be secondar y to bilateral adrenal hemorrhage. 3. No significant abnormality adjacent to the cecum. 4. Left inguinal hernia. 5. Enlarged right inguinal lymph nodes. 6. Left inguinal hernia. POS: [facility]
--- NOTE | 2017-03-22 22:55 | CON ---
DATE OF CONSULTATION: 03/22/2017 REASON FOR CONSULTATION: The consultation was requested for concern for adrenal hemorrhage. HISTORY OF PRESENT ILLNESS: The patient is a 71-year-old female who was admitted after a buttock abscess, was not responding to outpatient therapy. When she presented this was her only issue and she had no abdominal pain or significant tachycardia; however, during her stay, her heart rate elevated the night prior and she started to have abdominal pain in the last 24-48 hours more so on the left, but she cannot pinpoint this. She has not had this before, but does have a history of remote diverticulitis. She has a bowel movement daily if she takes MiraLax, and she has had that in the hospital. With her abdominal pain, she has had some nausea and vomiting, but she held down breakfast and lunch today. She has had prior gross hematuria with urinary infections. These have not been a significant issue. She has no history of stones. She has incontinence mainly stress related requiring 2-3 pads a day. She's also taking trospium BID. PAST MEDICAL HISTORY: Significant for microcytic anemia, hypertension, high cholesterol, and vascular disease PAST SURGICAL HISTORY: Significant for knee after trauma and left carotid endarterectomy with a minor stroke afterwards in 2001. PAST OB HISTORY: Four pregnancies, three vaginal deliveries. She had total vaginal hysterectomy for bleeding but still has her ovaries. A Pap smear since the hysterectomy was normal. MEDICATIONS: Include Celexa 20 mg, MiraLax daily, senna as needed, simvastatin 40 mg, trospium bid ALLERGIES: None. SOCIAL HISTORY: She smokes 5 cigarettes a day and has, at most, smoked to a half pack a day and has done this for 50 years. REVIEW OF SYSTEMS: Reveals she had a mammogram this year which is normal. She had a cardiac stress test last year which was within normal limits. Colonoscopy in 2011, which was normal, but apparently, she is due now despite having no polyps and no family history of colon cancer. She does have heart murmur without leaking valves, but she has not had clinical CHF previously and is denying chest pain or shortness of breath at this time. We reviewed her increased risk for bladder cancer, which presents with blood in the urine and never to ignore this. FAMILY HISTORY: noncontributory at this time PHYSICAL EXAMINATION: GENERAL: She appears uncomfortable in the bed and slightly edematous in the face. VITAL SIGNS: Temperature 98.2, heart rate 139, satting 95% on room air with respiratory rate of 22. Her urine output has been measured in the toilet. SKIN: Slightly pale, but without any diaphoresis. NECK: No obvious JVD. CARDIOVASCULAR: Her heart with regular rhythm, but tachycardic without any obvious murmurs. CHEST: Her lungs were clear to auscultation bilaterally. ABDOMEN: Softly distended with tenderness in the left upper quadrant, but no rebound tenderness or peritoneal signs. EXTREMITIES: She has had no lower extremity edema. She had a wound VAC in place covering the right buttock. She had a small incision from prior drainage on the left buttock with another bandage over this region as well. LABORATORY DATA: Reveals her anemia. Her white count is elevated from 16.5 to 27 with neutrophils only going down from 80 to 68 and bands are going from 11 to 6. BUN and creatinine are 13 and 0.80. Her BNP is 2171.3. Cortisol level was 20.30. CT SCAN: with contrast from 03/20/2017, reviewed personally, increased periadrenal edema with the left greater than the right. Right is relatively unremarkable. There does not appear to be any increased contrast or vascularity to indicate obvious or acute hemorrhage. There is very small, presumably simple left cyst in the kidney. There are no hydro stones or renal masses of concern. The bladder was normal and relatively small. ASSESSMENT AND PLAN: We have a 71-year-old female with adrenal findings from CT , but I am not convinced they are related to her tachycardia or abdominal pain at this time. I do not think she is in adrenal crisis as her cortisol was in appropriate level for the current hospital stay and stress she has been under. I am concerned about her abdominal pain which is new abdominal distention, so I have ordered a CT scan with contrast to evaluate her bowels. This will also show if there has been any change in the adrenals. I'll repeat a cortisol as well and f/u on her progress. [facility]
[2017-03-23] MEDS: Sodium Chloride 0.9% 1,000 ML IV SCH ×2 (02:36→20:22)
[2017-03-23] MEDS: Piperacillin/Tazobactam 3.375 GM in Sodium Chloride 0.9% 100 ML IVPB SCH ×4 (02:36→20:22)
[2017-03-23 06:29] LABS: Anion Gap 16 mmol/L (10-20); BUN (Urea Nitrogen) 9 mg/dL (9.8-20.1); Calc. Creatinine Clearance 74 mL/min (70-130); Calcium 8.4 mg/dL (7.8-10.44); Carbon Dioxide 20 mmol/L (23-31); Chloride 105 mmol/L (98-107); Estimated GFR-MDRD 70
[2017-03-23 07:15] LABS: Band 3 % (5-11); Blast 11 % (0-0); Hematocrit 26.4 % (36.0-47.0); Mean Platelet Volume 10.9 fL (7.4-10.4); Metamyelocyte 4 % (0-0); Myelocyte 9 % (0-0); Neutrophil 67 % (42-75); Nucleated RBC 4 % (0); Polychromasia SLIGHT = 2-3 cells (100X) (0-2/hpf); Red Blood Cell (RBC) Count 2.48 mill/uL (4.20-5.40); Schistocytes SLIGHT = 2-5 cells (100X) (0-1/hpf); Tear Drops SLIGHT = 2-5 cells (100X) (0-1/hpf); White Blood Cell (WBC) Count 18.7 thou/uL (4.8-10.8)
--- NOTE | 2017-03-23 07:57 | PDOC.PN ---
- Subjective Encounter Start Date: 03/23/17 Encounter Start Time: 07:47 Subjective: L sided abd pain persists, some diarrhea, nausea - Objective MAR Reviewed: Yes Vital Signs & Weight: Vital Signs (12 hours) Temp Pulse Resp BP Pulse Ox 03/23/17 04:00 98.4 F 121 H 18 139/85 93 L Weight Admit Weight 141 lb Weight 160 lb 1.6 oz I&O: 03/22/17 03/23/17 03/24/17 06:59 06:59 06:59 Intake Total 1450 3180 Output Total 200 500 Balance 1250 2680 Result Diagrams: 03/23/17 05:20 03/23/17 05:20 Phys Exam - Physical Examination Constitutional: NAD Neck: no JVD Respiratory: clear to auscultation bilateral Cardiovascular: RRR, no significant murmur tender with guarding on Left, hyperactive BS Musculoskeletal: no edema Dx/Plan (1) Abdominal pain Code(s): R10.9 - UNSPECIFIED ABDOMINAL PAIN Status: Acute (2) Diarrhea Code(s): R19.7 - DIARRHEA, UNSPECIFIED Status: Acute (3) Nausea & vomiting Code(s): R11.2 - NAUSEA WITH VOMITING, UNSPECIFIED Status: Acute (4) MDS (myelodysplastic syndrome) Code(s): D46.9 - MYELODYSPLASTIC SYNDROME, UNSPECIFIED Status: Acute (5) Leukemoid reaction Code(s): D72.823 - LEUKEMOID REACTION Status: Acute (6) Macrocytic anemia Code(s): D53.9 - NUTRITIONAL ANEMIA, UNSPECIFIED Status: Chronic (7) Dyslipidemia Code(s): E78.5 - HYPERLIPIDEMIA, UNSPECIFIED Status: Chronic (8) Hypertension Code(s): I10 - ESSENTIAL (PRIMARY) HYPERTENSION Status: Chronic - Plan discuss with surgery, oncology -: iv saline bolus -: iv MS for pain -: lactic acid level, stool for C diff * .
[2017-03-23] MEDS: TROSPIUM 20 MG TABLET PO SCH ×2 (07:59→20:35)
[2017-03-23] MEDS: traMADol HCl 50 MG TAB PO PRN ×2 (07:59→16:20)
[2017-03-23] MEDS: Saccharomyces boulardii 250 MG CAP PO SCH (08:00)
[2017-03-23] MEDS: Vancomycin HCl 500 MG in Sodium Chloride 0.9% 100 ML IVPB SCH ×2 (08:00→20:21)
[2017-03-23] MEDS: Polyethylene Glycol 3350 17 GM Packet PO SCH ×2 (08:01→20:21)
[2017-03-23 08:31] LABS: Lactic Acid - Sepsis 0.7 mmol/L (0.5-2.2)
[2017-03-23 09:38] LABS: Bilirubin Negative (Negative); Blood, Urine Negative (Negative); Glucose, Urine (Dipstick) Negative (Negative); Ketone, Urine Trace mg/dL (Negative); Nitrite Negative (Negative); Protein, Urine (Dipstick) Trace mg/dL (Neg-Trace); Urobilinogen 0.2 mg/dL (0.2-1.0)
[2017-03-23 09:40] LABS: Bacteria/HPF None Seen HPF (None Seen); Hyaline Casts/LPF 0-3 HYALINE CAST LPF (0-3 Hyaline); Squamous Epithelial 0-3 HPF (0-3); WBC/HPF 0-3 HPF (0-3)
[2017-03-23] MEDS ORDERED: Sodium Chloride 0.9% 1,000 ML IV SCH (10:00)
--- NOTE | 2017-03-23 10:08 | PRG ---
DATE OF SERVICE: 03/23/2017 SUBJECTIVE: The patient did well overnight. She did not ate dinner because she had the contrast with a CAT scan and was down there for that and was not hungry after. Breakfast is coming and she does report that she does feel hungry. She has had diarrhea and liquid movements, but she has had no nausea or vomiting. Her abdominal pain is no worse and is possibly slightly better. PHYSICAL EXAMINATION: She remains tachycardic, but slightly better than yesterday. She got up to 142 and overnight she has been in the 120s. Her blood pressure has been stable. She had a T-max of 99.5, currently 98.9 and saturations have been 92-95% on room air. GENERAL: She appears more comfortable in the bed than yesterday. She still has significant anasarca noted. ABDOMEN: Softly distended, mildly tender throughout with no rebound tenderness or peritoneal signs. LABORATORY DATA: Reveal her white count has come down to 18.7 from 21.5. Her H &H are stable. Platelets are back up to 501. Her chemistries are unremarkable , and her cortisol repeated was exactly the same at 20.30. CT SCAN (03/22/17) was reviewed personally and both the report and my assessment is that there is not concern for any acute bowel issue in comparison to the scan from 2 days prior. She had significant edema in all of her tissues both intra-abdominal and in her skin; therefore her adrenals also looked more edematous than the prior scan, but there is no concern for any significant or active bleeding; however, this could still be consistent with adrenal hemorrhage just from the images themselves. ASSESSMENT: In assessment we have a 71-year-old female who was admitted with significant buttock abscess that initially improved with incision and drainage and now has had tachycardia and overall anasarca without obvious etiology other than her heart given her BNP. I do not know the results of the echo as these are still to be discussed with the patient. At this time I am not concerned for an adrenal crisis given her cortisol level is still appropriate, but if there is further concern then this could be monitored and would be handled medically as there is no acute concern for significant hemorrhage from a volume standpoint--nor any need for surgical intervention. Please let me know if there are further concerns from a urologic standpoint. I am still waiting on the urinalysis as they have had trouble with getting a sample without contamination. Other than that, please contact me if there are further concerns. GUILLERMOD
[2017-03-23] MEDS ORDERED: Lidocaine 1% PF 5 ML VIAL ONE (17:56)
[2017-03-23] MEDS ORDERED: Esmolol 100 MG/10 ML VIAL ONE (17:56)
[2017-03-23] MEDS ORDERED: Propofol 200 MG/20 ML VIAL ONE (17:56)
--- NOTE | 2017-03-23 18:17 | PRG ---
DATE OF SERVICE: 03/23/2017 SUBJECTIVE: Marsha Iqbal was doing well today. Her pain is much improved. This morning, I had a sked Dr. Chucky Nevarez to see her. An upper endoscopy is planned for this afternoon. She was made n.p.o. The patient wants to eat. Despite her epigastric left upper quadrant pain, her appetite has been good. She has not had any nausea or vomiting and she wants to eat. The patient has a history of back problems. She has had problems with sinus tachycardia and is on telemetry. Temperature 99 degrees, pulse 113, respiratory rate 16, and blood pressure 133/84. She has a history of myelodysp lastic syndrome with leukemoid reaction and blast present on differential. Today her white count is 18,000, down from 27,000 two days ago, 21,000 yesterday; hemoglobin was 8.4. Sodium is 137, potass ium 4.0, carbon dioxide 20, BUN 9, creatinine 0.81. BNP yesterday was 2171. OBJECTIVE: LUNGS: Clear to auscultation. CARDIAC: Sinus tachycardia, 105 to 110. ABDOMEN: Soft, bowel sounds present, tenderness in her left upper quadrant with minimal guarding, m uch improved from yesterday. ASSESSMENT AND PLAN: Abdominal pain of uncertain etiology over the past 4 to 5 days. She has had 2 CAT scans several days apart, both of which are normal. Original CAT scan suggested some stranding about the adrenal, but there is no hematoma and there are no findings of acute hemorrhage. Followu p CAT scan did not reveal this. The patient reports past history of mid back to thoracic spine prob lems. She is tender along her upper thoracic spine and not tender elsewhere. Nerve distribution co uld reflect the pain in the left upper quadrant and back etiology. At this point, I do not think shailesh barroso has a surgical problem and I am awaiting Dr. Nevarez's upper endoscopy report. She is on twice daily proton pump inhibitors. Post-endoscopy, the patient's regular diet can be resumed from a surg ical standpoint. Dr. Abarca is covering over the weekend, please call him if necessary.
--- NOTE | 2017-03-23 19:14 | CON ---
DATE OF CONSULTATION: 03/23/2017 CHIEF COMPLAINT: Abdominal pain. HISTORY OF PRESENT ILLNESS: Ms. Iqbal is a 71-year-old woman who is admitted with a buttock absc ess. She has been on antibiotics and underwent an incision and drainage. She was ready to go home on Sunday, which was 3 days ago. However, she developed primarily left upper quadrant abdominal pa in. This is a severe aching pain that radiates through to her left lower back. When this pain init ially started, she did have nausea and vomited on Sunday, Sunday, and , but has not turn ed up today. She also developed diarrhea with that and has had around 4 to 5 liquidy stools per day . She has had no blood in the stool. No fever. She had her last colonoscopy. Her last colonoscop y was in 05/2012. She had a small tubular adenoma removed at that time. She had an EGD in 09/[address] Lima as well, which showed a small hiatal hernia. PAST MEDICAL HISTORY: Hypertension, hyperlipidemia. PAST SURGICAL HISTORY: Knee surgery and drainage of a buttocks abscess this hospital stay. FAMILY HISTORY: Negative for GI malignancy. SOCIAL HISTORY: No alcohol, tobacco, or drugs. ALLERGIES: No known drug allergies. CURRENT INPATIENT MEDICATIONS: Include citalopram, pantoprazole, Zosyn, polyethylene glycol schedul ed twice daily, saccharomyces, vancomycin. REVIEW OF SYSTEMS: Negative x10 systems reviewed except as stated in the history of present illness . PHYSICAL EXAMINATION: VITAL SIGNS: Temperature 98.5, pulse 105, oxygen saturation 93%, blood pressure 139/73. GENERAL: She is in no acute distress. She is alert and oriented x3. HEENT: Eyes have no scleral icterus. Oropharynx is clear without lesions. HEART: Tachycardic S1, S2. ABDOMEN: Soft. She is tender in the left upper quadrant to left lower quadrant without guarding. Bowel sounds are present. She does have some tenderness in the left lower back as well, but no foca l erythema or protrusion to indicate paraspinous abscess. EXTREMITIES: There is no rash to suggest zoster. LABORATORY DATA: Creatinine 0.8, bilirubin 0.3, AST 20, ALT 18, alkaline phosphatase 51, BNP 2171. Albumin 3.3, lipase 12. White blood cell count 18.7, hemoglobin 8.4, platelets 501. IMPRESSION: 1. Left upper quadrant to left lower quadrant abdominal pain that radiates around to the right back . She did have nausea and vomiting when this started as well as diffuse abdominal bloating. This s uggested a GI origin overall. Her symptoms may be secondary to side effects from the antibiotics. She has had some diarrhea with this as well; however, she also has MiraLax on her medication list. Stool studies have been sent for C. diff. 2. Anemia. She has a history of myelodysplastic syndrome and is being followed by Hematology. 3. Buttocks abscess, status post incision and drainage. RECOMMENDATIONS: 1. Esophagogastroduodenoscopy today. 2. If the EGD is negative, then imaging of the spine can be performed to rule out paraspinous absce ss. 3. Check iron studies. 4. Hold MiraLax and await stool studies for Clostridium difficile and other culture.
--- NOTE | 2017-03-23 20:01 | OP ---
DATE OF PROCEDURE: 03/23/2017 PREOPERATIVE DIAGNOSIS: Left upper quadrant abdominal pain. OPERATIVE NOTE: Informed consent was obtained from the patient. She was sedated with total intrave nous anesthesia. The bite block was placed and the endoscope was advanced easily to the second port ion of the duodenum and retroflexion was performed in the stomach. The esophagus was normal. The G E junction was normal. She did have a sliding hiatal hernia measuring around 1 cm. The stomach was normal including retroflexed views. The pylorus and first and second portions of the duodenum were normal. The air was suctioned from the stomach and the procedure was completed. IMPRESSION: 1. Normal esophagogastroduodenoscopy. 2. MRI of the thoracic and lumbar spine tomorrow. Given the nausea, vomiting, and abdominal bloati ng with onset of these symptoms, I suspect she does have a GI origin and overall, I suspect this is due to side effects from antibiotics. 3. Await stool studies including Clostridium difficile. 4. Hold MiraLax. 5. Check iron studies.
[2017-03-23] MEDS: Pantoprazole 40 MG VIAL IVP SCH (20:20)
[2017-03-23] MEDS: Simvastatin 40 MG TAB PO SCH (20:21)
[2017-03-24] MEDS: Piperacillin/Tazobactam 3.375 GM in Sodium Chloride 0.9% 100 ML IVPB SCH ×2 (03:09→11:05)
[2017-03-24] MEDS: Sodium Chloride 0.9% 1,000 ML IV SCH ×3 (03:10→20:15)
[2017-03-24 05:19] LABS: Iron 47 ug/dL (50-170)
[2017-03-24 05:25] LABS: Vancomycin, Trough 13.9 ug/mL
--- NOTE | 2017-03-24 07:04 | ADD-OP ---
DATE OF ADDENDUM: 03/23/2017 ESOPHAGOGASTRODUODENOSCOPY REPORT I reviewed the CT scan of the abdomen and pelvis with radiologist. There is no obvious abscess in t he paraspinous area. She does have evidence of an old compression fracture at T12, which is in the area of the dermatomal distribution of her pain. However, given that her pain onset with nausea, vo miting, abdominal distention, and diarrhea, I would still favor a GI source for this. For now, poss ibly side effects of the antibiotics. I will hold off scheduling MRI at this point.
[2017-03-24] MEDS ORDERED: Vancomycin HCl 1.25 GM in Sodium Chloride 0.9% 250 ML 250 ML IVPB SCH (09:00)
--- NOTE | 2017-03-24 10:49 | PDOC.PN ---
- Subjective Encounter Start Date: 03/24/17 Encounter Start Time: 10:48 Subjective: severe abd pain - Objective MAR Reviewed: Yes Vital Signs & Weight: Vital Signs (12 hours) Temp Pulse Resp BP Pulse Ox 03/24/17 06:03 126 H 03/24/17 05:30 98.5 F 99 20 172/79 H 96 Weight Admit Weight 141 lb Weight 168 lb 8 oz I&O: 03/23/17 03/24/17 03/25/17 06:59 06:59 06:59 Intake Total 3180 3760 Output Total 500 300 Balance 2680 3460 Result Diagrams: 03/23/17 05:20 03/23/17 05:20 Additional Labs: Accuchecks 03/24/17 06:11 POC Glucose 127 H Phys Exam - Physical Examination Constitutional: NAD Neck: no JVD Respiratory: clear to auscultation bilateral Cardiovascular: RRR, no significant murmur distended, tender, hyperactive Musculoskeletal: edema present Dx/Plan (1) Abdominal pain Code(s): R10.9 - UNSPECIFIED ABDOMINAL PAIN Status: Acute Qualifiers: Abdominal location: generalized Qualified Code(s): R10.84 - Generalized abdominal pain (2) Diarrhea Code(s): R19.7 - DIARRHEA, UNSPECIFIED Status: Acute Qualifiers: Diarrhea type: infectious Qualified Code(s): A09 - Infectious gastroenteritis and colitis, unspecified (3) Nausea & vomiting Code(s): R11.2 - NAUSEA WITH VOMITING, UNSPECIFIED Status: Acute (4) MDS (myelodysplastic syndrome) Code(s): D46.9 - MYELODYSPLASTIC SYNDROME, UNSPECIFIED Status: Acute (5) Leukemoid reaction Code(s): D72.823 - LEUKEMOID REACTION Status: Acute (6) Macrocytic anemia Code(s): D53.9 - NUTRITIONAL ANEMIA, UNSPECIFIED Status: Chronic (7) Dyslipidemia Code(s): E78.5 - HYPERLIPIDEMIA, UNSPECIFIED Status: Chronic (8) Hypertension Code(s): I10 - ESSENTIAL (PRIMARY) HYPERTENSION Status: Chronic (9) Colitis due to Clostridium difficile Status: Acute - Plan po vanvomycin -: toradol, MS for pain -: DC iv antibx * .
[2017-03-24] MEDS ORDERED: Vancomycin HCl 25 MG/ML Oral PO SCH (11:00)
[2017-03-24] MEDS: Ketorolac Tromethamine 30 MG/ML VIAL IVP PRN (11:04)
[2017-03-24] MEDS: Polyethylene Glycol 3350 17 GM Packet PO SCH (11:05)
[2017-03-24] MEDS: TROSPIUM 20 MG TABLET PO SCH ×2 (11:06→20:13)
[2017-03-24] MEDS: Saccharomyces boulardii 250 MG CAP PO SCH (11:06)
[2017-03-24] MEDS ORDERED: Morphine Sulfate 2 MG/ML SYRINGE SLOW IVP PRN (11:54)
[2017-03-24] MEDS: Vancomycin HCl 25 MG/ML Oral PO SCH ×3 (12:40→20:13)
--- NOTE | 2017-03-24 14:41 | PRG ---
DATE OF SERVICE: 03/24/2017 SUBJECTIVE: Ms. Iqbal complained of increased bloating and her abdomen today and she received pa in medication for that, which has made her sleepy now. She has continued to have diarrhea today: PHYSICAL EXAMINATION: VITAL SIGNS: Temperature 98.5, pulse 126, blood pressure 172/79. GENERAL: She is sleepy from the pain medicines. Her pain is now well controlled. LUNGS: Clear to auscultation bilaterally. CARDIOVASCULAR: Tachycardic S1, S2. ABDOMEN: Mildly distended, but not tense at all. She is softer. Her bowel sounds are present. Sh e has no tenderness to palpation now. EXTREMITIES: Trace lower extremity edema. LABORATORY DATA: White blood cell count 18.7, hemoglobin 8.4, platelets 501, these labs are from ye sterday. Creatinine was 0.8, yesterday. IMPRESSION: 1. Clostridium difficile colitis. The stool came back positive for Clostridium difficile toxin. 2. Myelodysplastic syndrome. 3. Abscess, status post drainage. RECOMMENDATIONS: 1. Oral vancomycin. 2. Probiotics with saccharomyces. 3. The other systemic antibiotics have been discontinued.
[2017-03-24] MEDS: Simvastatin 40 MG TAB PO SCH (20:13)
[2017-03-24] MEDS: Pantoprazole 40 MG VIAL IVP SCH (20:13)
[2017-03-25] MEDS: Ketorolac Tromethamine 30 MG/ML VIAL IVP PRN ×2 (01:01→11:41)
--- NOTE | 2017-03-25 11:14 | PDOC.PN ---
- Subjective Encounter Start Date: 03/25/17 Encounter Start Time: 11:13 Subjective: abd pain, diarrhea much improved - Objective Vital Signs & Weight: Vital Signs (12 hours) Temp Pulse Resp BP Pulse Ox 03/25/17 05:20 97.2 F L 95 18 115/55 L 96 Weight Admit Weight 141 lb Weight 171 lb 6.4 oz I&O: 03/24/17 03/25/17 03/26/17 06:59 06:59 06:59 Intake Total 3760 2640 Output Total 300 300 Balance 3460 2340 Result Diagrams: 03/23/17 05:20 03/23/17 05:20 Phys Exam - Physical Examination Constitutional: NAD Neck: no JVD Respiratory: clear to auscultation bilateral Cardiovascular: RRR, no significant murmur Gastrointestinal: soft, non-tender, positive bowel sounds Musculoskeletal: no edema Dx/Plan (1) Abdominal pain Code(s): R10.9 - UNSPECIFIED ABDOMINAL PAIN Status: Acute Qualifiers: Abdominal location: generalized Qualified Code(s): R10.84 - Generalized abdominal pain (2) Diarrhea Code(s): R19.7 - DIARRHEA, UNSPECIFIED Status: Acute Qualifiers: Diarrhea type: infectious Qualified Code(s): A09 - Infectious gastroenteritis and colitis, unspecified (3) Nausea & vomiting Code(s): R11.2 - NAUSEA WITH VOMITING, UNSPECIFIED Status: Resolved (4) MDS (myelodysplastic syndrome) Code(s): D46.9 - MYELODYSPLASTIC SYNDROME, UNSPECIFIED Status: Acute (5) Leukemoid reaction Code(s): D72.823 - LEUKEMOID REACTION Status: Acute (6) Macrocytic anemia Code(s): D53.9 - NUTRITIONAL ANEMIA, UNSPECIFIED Status: Chronic (7) Dyslipidemia Code(s): E78.5 - HYPERLIPIDEMIA, UNSPECIFIED Status: Chronic (8) Hypertension Code(s): I10 - ESSENTIAL (PRIMARY) HYPERTENSION Status: Chronic (9) Colitis due to Clostridium difficile Status: Acute - Plan cont oral vancomycin, check cbc -: OQW cont current tx * .
[2017-03-25] MEDS: Vancomycin HCl 25 MG/ML Oral PO SCH ×4 (11:39→21:50)
[2017-03-25] MEDS: Saccharomyces boulardii 250 MG CAP PO SCH (11:40)
[2017-03-25] MEDS: TROSPIUM 20 MG TABLET PO SCH ×2 (11:40→21:50)
[2017-03-25 14:32] LABS: Mean Platelet Volume 9.8 fL (7.4-10.4); Red Blood Cell (RBC) Count 2.44 mill/uL (4.20-5.40); White Blood Cell (WBC) Count 17.6 thou/uL (4.8-10.8)
[2017-03-25 14:53] LABS: Anisocytosis MODERATE=16-30 cells (100X) (0-5/hpf); Band 6 % (5-11); Basophilic Stippling SLIGHT = 1-2 cells (100X) (None Seen); Blast 7 % (0-0); Macrocytosis SLIGHT = 6-15 cells (100X) (0-5/hpf); Metamyelocyte 1 % (0-0); Neutrophil 78 % (42-75); Nucleated RBC 7 % (0); Ovalocytes SLIGHT = 2-5 cells (100X) (0-1/hpf); Polychromasia MODERATE = 3-4 cells (100X) (0-2/hpf); Schistocytes SLIGHT = 2-5 cells (100X) (0-1/hpf); Tear Drops SLIGHT = 2-5 cells (100X) (0-1/hpf)
[2017-03-25] MEDS: Sodium Chloride 0.9% 1,000 ML IV SCH (16:22)
[2017-03-25] MEDS: Ibuprofen 600 MG TAB PO PRN (17:41)
--- NOTE | 2017-03-25 19:28 | PRG ---
DATE OF SERVICE: 03/25/2017 SUBJECTIVE: Ms. Iqbal feels much better today. She is tolerating a solid diet. She has less ab dominal distention and her diarrhea is better. OBJECTIVE: VITAL SIGNS: Temperature 97.7, pulse 100, and blood pressure 177/77. GENERAL: She is in no acute distress, alert and oriented x3. LUNGS: Clear to auscultation bilaterally. HEART: Regular rate and rhythm. ABDOMEN: Soft, mild diffuse tenderness without guarding. Bowel sounds are present. EXTREMITIES: No lower extremity edema. LABORATORY DATA: White blood cell count 17.6, hemoglobin 8.3, platelets 355, creatinine 0.81. IMPRESSION: 1. Clostridium difficile colitis. 2. Admission for drainage of buttocks abscess. Her Zosyn has been discontinued now. RECOMMENDATIONS: 1. Complete a 14-day course of vancomycin 125 mg orally 4 times a day. 2. Florastor 250 mg twice daily for 1 month. 3. Follow up in the office with Dr. Lima in 4 to 6 weeks. She will be due for surveillance colono scopy at that point. We will need to verify that the C. diff is resolved prior to that. 4. I will sign off. Please call if GI can be of assistance.
[2017-03-25] MEDS: Pantoprazole 40 MG VIAL IVP SCH (21:50)
[2017-03-25] MEDS: Simvastatin 40 MG TAB PO SCH (21:50)
[2017-03-25] MEDS ORDERED: Metoprolol Tartrate 25 MG TAB PO SCH (23:00)
[2017-03-25 23:29] LABS: Anion Gap 14 mmol/L (10-20); BUN (Urea Nitrogen) 14 mg/dL (9.8-20.1); Calc. Creatinine Clearance 47 mL/min (70-130); Calcium 8.4 mg/dL (7.8-10.44); Carbon Dioxide 20 mmol/L (23-31); Chloride 109 mmol/L (98-107); Estimated GFR-MDRD 38; Magnesium 1.6 mg/dL (1.6-2.6)
[2017-03-25 23:33] LABS: Troponin I 0.033 ng/mL (< 0.028)
[2017-03-26] MEDS ORDERED: Potassium Chloride 20 MEQ TAB PO SCH (00:15)
[2017-03-26] MEDS: Sodium Chloride 0.9% 1,000 ML IV SCH ×2 (00:19→06:32)
[2017-03-26] MEDS ORDERED: Magnesium 2 GM/NS 0.9% 100 ML 2 GM in Premix Bag 1 BAG IVPB SCH (00:30)
[2017-03-26] MEDS ORDERED: Potassium Chloride 40 MEQ in Sodium Chloride 0.9% 500 ML IVPB SCH (01:00)
[2017-03-26] MEDS: Metoprolol Tartrate 25 MG TAB PO SCH ×2 (08:33→21:56)
[2017-03-26] MEDS: TROSPIUM 20 MG TABLET PO SCH ×2 (08:34→21:56)
[2017-03-26] MEDS: Vancomycin HCl 25 MG/ML Oral PO SCH ×4 (08:34→21:55)
[2017-03-26] MEDS: Saccharomyces boulardii 250 MG CAP PO SCH (08:34)
[2017-03-26 09:10] LABS: Vancomycin, Trough 11.7 ug/mL
--- NOTE | 2017-03-26 09:44 | PRG ---
DATE OF SERVICE: 03/26/2017 Ms. Iqbal is doing well today. She has been diagnosed with C. diff colitis. She is having infre quent stools. Her abdomen pain is better. Right buttock abscess is granulating healthy. She will shower and wound VAC will be reapplied. At this point, I will see her in the office in 2-3 weeks. I will see her this hospitalization as needed.
--- NOTE | 2017-03-26 09:55 | PDOC.PN ---
- Subjective Encounter Start Date: 03/26/17 Encounter Start Time: 09:53 Subjective: swelling, tachycardic - Objective MAR Reviewed: Yes Vital Signs & Weight: Vital Signs (12 hours) Temp Pulse Resp BP Pulse Ox 03/26/17 08:00 98.3 F 134 H 18 138/80 96 03/26/17 04:00 97.7 F 120 H 22 H 175/95 H 92 L 03/25/17 22:55 98 F 164/84 H Weight Admit Weight 141 lb Weight 171 lb 6.4 oz I&O: 03/25/17 03/26/17 03/27/17 06:59 06:59 06:59 Intake Total 2640 2560 Output Total 300 Balance 2340 2560 Result Diagrams: 03/25/17 14:26 03/25/17 22:51 Radiology Reviewed by me: Yes (cxr- pvc) Phys Exam - Physical Examination Constitutional: NAD Neck: no JVD basilar rales Cardiovascular: RRR, no significant murmur Gastrointestinal: soft, positive bowel sounds 2+ edema Dx/Plan (1) Abdominal pain Code(s): R10.9 - UNSPECIFIED ABDOMINAL PAIN Status: Resolved Qualifiers: Abdominal location: generalized Qualified Code(s): R10.84 - Generalized abdominal pain (2) Diarrhea Code(s): R19.7 - DIARRHEA, UNSPECIFIED Status: Acute Qualifiers: Diarrhea type: infectious Qualified Code(s): A09 - Infectious gastroenteritis and colitis, unspecified (3) Nausea & vomiting Code(s): R11.2 - NAUSEA WITH VOMITING, UNSPECIFIED Status: Resolved (4) MDS (myelodysplastic syndrome) Code(s): D46.9 - MYELODYSPLASTIC SYNDROME, UNSPECIFIED Status: Acute (5) Leukemoid reaction Code(s): D72.823 - LEUKEMOID REACTION Status: Acute (6) Macrocytic anemia Code(s): D53.9 - NUTRITIONAL ANEMIA, UNSPECIFIED Status: Chronic (7) Dyslipidemia Code(s): E78.5 - HYPERLIPIDEMIA, UNSPECIFIED Status: Chronic (8) Hypertension Code(s): I10 - ESSENTIAL (PRIMARY) HYPERTENSION Status: Chronic Qualifiers: Hypertension type: essential hypertension Qualified Code(s): I10 - Essential (primary) hypertension (9) Colitis due to Clostridium difficile Status: Acute - Plan stat cxr- PVC lasix 40 iv -: cont po vancomycin * .
[2017-03-26] MEDS ORDERED: Furosemide 40 MG/4 ML VIAL SLOW IVP SCH (11:15)
--- NOTE | 2017-03-26 12:44 | RAD ---
PORTABLE CHEST 1 VIEW: Date: 03/26/17 Time: 1026 hours HISTORY: Shortness of breath. FINDINGS/IMPRESSION: Comparison made with exam of 03/22/17. The heart size is stable. There is continued elevation of the right hemidiaphragm. Right subclavian central line remains in place. The aorta is tortuous. The plates of atelectasis in the lower lung fi elds on either side demonstrate interval improvement. No pneumothoraces are seen. POS: JINA
--- NOTE | 2017-03-26 15:12 | CON ---
DATE OF CONSULTATION: 03/26/2017 Smiley Sweet NP, dictating for Mckenzie Parisi M.D. LOCATION: Room #280. PRIMARY CARE PHYSICIAN: Dr. Boubacar Marie. PRIMARY TDP DISPLAYS ANALYST: Dr. Mckenzie Parisi. REASON FOR CONSULTATION: Increasing the heart rate 100 to 140. HISTORY OF PRESENT ILLNESS: Mrs. Iqbal is a 71-year-old female with significant history of hypertension, history of Cerebrovascular accident in 2001, status post left Carotid Endarterectomy in 2001 and current smoker. The patient was admitted here at [facility] due to abscess in the bilateral buttocks and underwent incision and drainage by Dr. Tucker on 03/16. She was almost discharged last ; however, she started to complain of abdominal pain. She underwent Esophagogastroduodenoscopy on 03/23 and confirmed C. diff colitis by Dr. Nevarez. Since then she was doing well until last night. Last night on 03/25 around 2200, the patient's telemetry records showed the patient's heart rhythm changed to Supraventricular tachycardia with heart rate of 130s to 140s. At that time, she did not have symptoms of fluttering or palpitations in her chest, dizziness, lightheadedness, or any other Cardiology complaints. During initial assessment, she also denies any Cardiology complaints, except swelling in her bilateral lower extremities for a few days. The patient's family member reports that the patient's weight increased about 30 pounds within few days, but patient's weight was measured by bed scale instead of standing scale, maybe it is not accurate current weight. She has diarrhea twice today. She already took a shower and she is waiting for Wound Care Team to come to her room and redress the wound care VAC applied to her buttock. Echocardiogram today shows ejection fraction of 60% to 65%, dilated right ventricle, mild enlarged right atrium size, moderate mitral regurgitation, aortic valve appears tricuspid, mild tricuspid regurgitation, mild pulmonary regurgitation, and the appendix of right ventricle is suspicious for thrombus or mass. She received IV Lasix 40 mg today due to the chest x-ray results this morning. She had a history of CVA in 2001 and status post left carotid endarterectomy by Dr. Almeida. She has been following up with Dr. Almeida with serial carotid Doppler. She still continues to smoke 4 to 5 cigarettes a day. PAST MEDICAL HISTORY: 1. Hypertension. 2. Hyperlipidemia. 3. Bilateral carotid disease since 2001. 4. Stroke 2001. 5. Anemia. 6. Macular degeneration in 2014. 7. Tobacco abuse. PAST SURGICAL HISTORY: 1. Hysterectomy. 2. Tonsillectomy. 3. Left carotid endarterectomy in 2001. 4. Right inguinal hernia repair. 5. Bilateral knee surgery. 6. Right kidney mass 2004. FAMILY HISTORY: Her mother underwent coronary angioplasty and a stent placement. Grandmother in her maternal had a history of diabetes. SOCIAL HISTORY: The patient is , living with her . She denies alcohol abuse, or illicit drug abuse. She still is smoking 4 to 5 cigarettes a day. She usually have diet coke 1 to 2 cans a day and at least 6 cups of coffee a day. ALLERGIES: The patient is allergic to LIBRIUM and PENICILLIN. HOME MEDICATIONS: Calcium citrate plus vitamin D 315 mg with 200 unit tablet once a day, iron supplements 325 mg once a day, folic acid 800 mcg once a day, citalopram 20 mg once a day, hydrochlorothiazide 25 mg once a day, simvastatin 40 mg once a day, nifedipine ER 60 mg once a day, Fosamax 70 mg once a week in the morning, Avapro 150 mg once a day, aspirin 325 mg once a day, potassium 10 mEq once a day, vitamin B12 1000 mcg per mL injection once by intramuscular route every month, propranolol ER 80 mg once a day, PreserVision 1 tablet twice a day, vitamin E 1000 units once a day, tolterodine ER 4 mg once a day, omeprazole 40 mg once a day before meals. REVIEW OF SYSTEMS: The following complete review of systems was negative, unless otherwise mentioned in the HPI or below. Constitutional: Weight loss or gain, sense of well being, ability to conduct usual activity, exercise tolerance. Skin: Rash, itching, changes in hair growth or loss, nail changes, breast lumps, tenderness, swelling, nipple discharge. Eyes: Vision change, double vision, tearing, blind spots or pain. HENT: Headache, vertigo, lightheadedness, nose bleeding, cold, nasal obstruction or discharge, dental difficulty, gingival bleeding, dentures, neck stiffness, pain, tenderness, mass in the thyroid or other areas. Cardiovascular: Precordial pain, substernal distress, palpitations, syncope, dyspnea on exertion, orthopnea, nocturnal dyspnea, edema, cyanosis, hypertension, varicose, claudication. Respiratory: Shortness of breath, wheezing, stridor, cough, hemoptysis. Gastrointestinal: This is before the patient admitted to the hospital; negative to poor appetite, dysphagia, indigestion, abdominal pain, heartburn, eructation, nausea, vomiting , jaundice, constipation, or diarrhea, abnormal stools, hemorrhoid recent change of bowel habit until she admit to the hospital. Genitourinary: Urgency , frequency, dysuria, nocturia, hematuria, polyuria, oliguria, unusual color of urine, stones, hesitancy, change. Musculoskeletal: Pain, swelling, redness or heat of muscle or joint, limitation, of motion, muscular weakness, atrophy, cramps. Neurologic: Conversion seizure paralysis, tremor, incoordination, difficulty with memory of speech, sensory or motor disturbances or muscular coordination. Psychiatric: Emotional problem, anxiety, depression, previous psychiatric care, unusual perceptions, hallucinations. PHYSICAL EXAMINATION: VITAL SIGNS: Blood pressure 138/80, heart rate 120 to 130, respiratory rate 18 , O2 saturation 96% with room air, temperature 98.3. GENERAL: Well-developed, well-nourished without any acute distress. HEAD: Normocephalic, atraumatic. Eyes: Pupils are equal, reactive. Extraocular muscle movements are intact. ENT: Oral and nasal mucosa are moist without lesion. NECK: No JVD. Neck is supple and normal range of motion. LUNGS: Clear to auscultate bilaterally, but diminished at the bases. No wheezing, rales, or rhonchi noted. CARDIOVASCULAR: Regular rate and rhythm, normal S1, S2. There are no S3 or S4 , no significant murmur, hives, thrill, bruit, or rub noted. EXTREMITIES: 1+ in bilateral dorsal pedis and posterior tibial, and popliteal. Carotid pulses are present. There are nonpitting edema in the bilateral lower extremities and some sweating in her bilateral forearms. Patient states the swelling from infiltration of IV. MUSCULOSKELETAL: Able to move all extremities. SKIN: Warm and dry. No skin rash, lesions or bruise or not. She has a chest in the bilateral buttock. NEUROLOGIC: Alert, oriented x4, awake. Normal affect and nonfocal. PSYCHIATRIC: Mood and affect are normal. IMAGING: EKG: A 12 lead on 03/25 around 2200 showed SVT with heart rate 139. There are no ST segment changes. LABORATORY DATA: Today Lab showed WBC 17.6, hemoglobin 8.3, hematocrit 26.0 and platelets 355. Blood cell is 7, which was 11 yesterday. Sodium 140, potassium 2.9, BUN 14, creatinine 1.36, which was 0.81 on 03/23, glucose 90. The patient received potassium supplement to cover the hypokalemia last night. ASSESSMENT AND PLAN: 1. Supraventricular tachycardia at this moment, the residential monitor is showing sinus tachycardia with heart rate 110s to 120s. Diltiazem 5 mg per an hour IV was started. We would like to continue to monitor the patient's heart rate and rhythm on telemetry. 2. Abscess at the bilateral buttock. According Dr. Tucker's note, patient is doing well. The patient was almost discharged last , but staying here due to acute abdominal pain. Wound VAC will be reapplied by Wound Care nurse today. 3. Hypertension. The patient's blood pressure is stable with current medication. 4. Acute kidney disease. The patient's creatinine was increased to 1.37 from 0.88. We would like to continue to monitor. 5. Hyperlipidemia. She is on statin medication. 6. History of CVA in 2001. Patient's condition is stable. We would like to continue to monitor. 7. Left carotid endarterectomy in 2001. Her condition is stable at this time, we would like to continue to monitor. 8. Clostridium difficile colitis. EGD on 03/23, revealed Clostridium difficile colitis. Patient denied any abdominal pain at this time. Managed by GI doctors. 9. Current smoker, smoking cessation education was given to the patient and family member. Thank you very much for allowing the Cardiology service to participate in the care of the patient. We will follow up along with the patient's care team and then make further recommendations as appropriate. GUILLERMOD
--- NOTE | 2017-03-26 20:53 | ADD-CON ---
DATE OF CONSULTATION: 03/26/2017 DATE OF ADMISSION: 03/15/2017 INDICATION FOR CONSULTATION: A 71-year-old female with tachycardia. HISTORY OF PRESENT ILLNESS: This is a very pleasant 71-year-old female who had noted to have an abs cess on the right buttock area underwent incision and eventually became worse and then presented to emergency room and has been found to have at least partial sepsis that appears, has been treated wit h antibiotics. She then developed C. diff and has been having diarrhea, significant amount. She do es have a past medical history of some hypertension, hyperlipidemia. She has had a long history of COPD and continues to smoke. She has not had any recent cardiac complaints, but we were asked to se e her due to her continued tachycardia. She appears to have sinus tachycardia at times and almost a ppears to be atrial flutter, but certainly some bursts of supraventricular tachycardia. At this cassidy e, she has been placed on beta-blockers as well as diltiazem and the heart rate is still in the 120s to 130 at times and most of the time it is just at 100 beats per minute. She denies any chest pain or significant shortness of breath. Her EKG does not indicate any evidence of ischemia, despite marino ving the tachycardia and the main concern at this time is to lower the heart rate in order to preven t congestive heart failure. She does have some lower extremity edema which she says has it been a r ecent onset since she has been in the hospital. She has been on diuretics for quite some time and i f does not take the diuretic she says that she will usually have edema. Obviously with her C diff w ith her diarrhea, she has lost a significant amount of fluid. Her white blood cell count is still 1 7,000, her hemoglobin was 8.3. She has very low sodium which is associated with her diarrhea at 2.9 , this is yesterday, this is being replaced. Her sodium was 140. Her BUN and creatinine are relati vely stable. Creatinine is slightly elevated at 1.36. She is also being evaluated by Hematology fo r possible myelodysplastic syndrome. At this time, her overall problems are multiple and she has mu ltifactorial problems. GENERAL: Her examination reveals an elderly female who is in no acute distress. She does appear to be somewhat uncomfortable and fatigued. VITAL SIGNS: Her blood pressure is 157/94 at noon today, her heart rates in the 120s to 130s. She is afebrile, respiratory rate is 20. HEENT: Shows her head to be normocephalic and atraumatic. CHEST: Actually does have few scattered rales mainly on the right side. CARDIOVASCULAR: Revealed a tachycardia, but appeared to be regular. I do not hear any gross murmur s. ABDOMEN: She has hyperactive bowel sounds. EXTREMITIES: Showed 2+ lower extremity edema. NEUROLOGIC: The patient appears to be intact, but does appear to be fatigued. Her EKG as noted above shows what appears to be SVT at times, sometimes sinus tachycardia, but no ST segment elevation that would indicate ischemia. At this time, we will continue with her present ma nagement of the beta blockers and diltiazem in order to slow the heart rate down. Most likely this is a manifestation of her underlying disease from either from her COPD standpoint as well as her inf ection and I suspect once the infection is under better control with further C diff, then most likel y her symptoms of tachycardia will improve. If she does not decrease heart rate with the present me dications, I would increase the dose of the beta blockers as tolerated. She denies any significant shortness of breath or wheezing at this time. IMPRESSION AND PLAN: 1. Tachycardia, which appears to be sinus tachycardia or episodes of supraventricular tachycardia. She is on beta-blockers and diltiazem. We will continue these medications as long as the blood pre ssure remained stable. Hopefully, she will convert to sinus rhythm and maintain sinus rhythm. 2. Clostridium difficile, which is being dealt with by the primary care service. 3. Probable myelodysplastic syndrome. She has been seen by Hematology and Oncology. 4. History of tobacco abuse and chronic obstructive pulmonary disease, this appears to be stable at this time. 5. Lower extremity edema which is most likely associated with her present illness and also associat ed with tachycardia. She has been given IV diuretics. I would agree with this and hopefully within the next 1-2 days, her symptoms will improve. Thank you very much for asking us to see her. We will continue to follow the patient with you. She did have an echocardiogram today, which showed normal ejection fraction, but continued tachycardia.
[2017-03-26] MEDS: Pantoprazole 40 MG VIAL IVP SCH (21:55)
[2017-03-26] MEDS: Simvastatin 40 MG TAB PO SCH (21:56)
[2017-03-27] MEDS: Saccharomyces boulardii 250 MG CAP PO SCH (08:47)
[2017-03-27] MEDS: TROSPIUM 20 MG TABLET PO SCH ×2 (08:48→20:59)
[2017-03-27] MEDS: Vancomycin HCl 25 MG/ML Oral PO SCH ×4 (08:48→20:59)
[2017-03-27] MEDS: Metoprolol Tartrate 25 MG TAB PO SCH (08:48)
--- NOTE | 2017-03-27 08:54 | PDOC.PN ---
- Subjective Encounter Start Date: 03/27/17 Encounter Start Time: 08:52 Subjective: Abdominal pain mod/severe, but better than yesterday -: SOB stable; no palpitations currently -: No f/c - Objective MAR Reviewed: Yes Vital Signs & Weight: Vital Signs (12 hours) Temp Pulse Resp BP Pulse Ox 03/27/17 07:38 98.2 F 84 18 157/75 H 96 03/27/17 04:00 97.8 F 80 18 127/82 96 Weight Admit Weight 141 lb Weight 177 lb 1.6 oz I&O: 03/26/17 03/27/17 03/28/17 06:59 06:59 06:59 Intake Total 2560 1985 Output Total 600 Balance 2560 1385 Result Diagrams: 03/25/17 14:26 03/25/17 22:51 Phys Exam - Physical Examination Constitutional: NAD HEENT: moist MMs, sclera anicteric Neck: no nodes, no JVD Respiratory: no wheezing, no rales, no rhonchi Cardiovascular: no significant murmur, no rub Gastrointestinal: soft, positive bowel sounds generalized tenderness b/l LE pitting edema Psychiatric: normal affect Skin: no rash, normal turgor Dx/Plan (1) Colitis due to Clostridium difficile Status: Acute (2) MDS (myelodysplastic syndrome) Code(s): D46.9 - MYELODYSPLASTIC SYNDROME, UNSPECIFIED Status: Acute (3) Abdominal pain Code(s): R10.9 - UNSPECIFIED ABDOMINAL PAIN Status: Resolved Qualifiers: Abdominal location: generalized Qualified Code(s): R10.84 - Generalized abdominal pain (4) Nausea & vomiting Code(s): R11.2 - NAUSEA WITH VOMITING, UNSPECIFIED Status: Resolved - Plan C diff colitis * resulting in abdominal pain, N/V/D * Vanco 125mg QID for 14 days * Florastor 250mg BID x 1 month * needs GI f/u in 4-6 weeks * check labs in AM SVT * appreciate cardiology input * monitor HR on tele Right Buttock Abscess * wound vac reapplied * wound care service consulted - appreciate input * f/u with surgery as outpt in 2-3 weeks Dispo: Continue inpt.
--- NOTE | 2017-03-27 08:56 | PDOC.CTH ---
<Smiley Sweet - Last Filed: 03/27/17 12:57> Cardiology Progress Note - Subjective The pt was seen and examined. No overnight events. No cardiac complaints. She is eating breakfast without any difficulties or discomfort in her ABD. She stated she can breath better today - Objective Vital Signs Temp Pulse Resp BP Pulse Ox 03/27/17 07:38 98.2 F 84 18 157/75 H 96 03/27/17 04:00 97.8 F 80 18 127/82 96 Admit Weight 141 lb Weight 177 lb 1.6 oz 03/26/17 03/27/17 03/28/17 06:59 06:59 06:59 Intake Total 2560 1985 Output Total 600 Balance 2560 1385 - Physical Examination General/Neuro: alert & oriented x3 Neck: no JVD present Lungs: CTA, other: (diminished at bases) Heart: RRR Abdomen: soft Extremities: other: (2+ pitting edema in BLE with SCDs) - Telemetry Telemetry Rhythm: SR with HR 80-90s - Labs Result Diagrams: 03/25/17 14:26 03/27/17 10:24 Troponin/CKMB CK-MB (CK-2) 2.4 ng/mL (0-6.6) 03/25/17 22:51 Troponin I 0.033 ng/mL (< 0.028) H 03/25/17 22:51 - Assessment/Plan 1. Tachycardia/SVT - Remain SR with HR 80-90s with diltiazem IV 10mg/h and current medications; increase Metoprolol from 25 to 50mg BID; cont. monitor on Tele 2. C diff colitis - diarrhea x1 this AM; managed by PCP and GI 3. HTN - Resume Nifedipine 60mg daily; cont. monitor 4. Edema in BLE - improved this AM; cont. SCDs and raise her lower exts; encourage the pt to wear compression stockings at home 5. Hyperlipidemia - on Statin medication 6. Hx of CVA - stable; cont. monitor 7. Myelodysplastic syncdrome - managed by oncologists 8. Tobacco Abuse - The pt is willing to quit smoking MAR reviewed Review of Systems - Review of Systems Constitutional: reports: weakness EENTM: reports: no symptoms reported Respiratory: reports: no symptoms reported Cardiac (ROS): reports: no symptoms reported ABD/GI: reports: abdominal pain : reports: no symptoms reported Musculoskeletal: reports: no symptoms reported <Pérez Parisi - Last Filed: 03/27/17 14:57> Cardiology Progress Note - Objective Vital Signs Temp Pulse Resp BP BP Pulse Ox 03/27/17 12:00 98.4 F 82 16 130/70 94 L 03/27/17 09:59 120 H 130/59 L 03/27/17 07:38 98.2 F 84 18 157/75 H 96 03/27/17 07:30 98.2 F 84 18 96 03/27/17 04:00 97.8 F 80 18 127/82 96 Admit Weight 141 lb Weight 177 lb 1.6 oz 03/26/17 03/27/17 03/28/17 06:59 06:59 06:59 Intake Total 2560 1985 Output Total 600 Balance 2560 1385 - Labs Result Diagrams: 03/25/17 14:26 03/27/17 10:24 Troponin/CKMB CK-MB (CK-2) 2.4 ng/mL (0-6.6) 03/25/17 22:51 Troponin I 0.033 ng/mL (< 0.028) H 03/25/17 22:51 - Assessment/Plan Pt. was seen and eval. by me. I agree with the A/P by the LINESPERSON. The pt. is fatigued but the HR is stable in the 80's with sinus rhythm. She did have an episode earlier today for a short period with sinis tach in the 120's but that has resolved. Overall cardiac status is stable at tis time. She still has edema . The I/O's are inaccurate. I would continue lasix as needed.
[2017-03-27] MEDS: NIFEdipine XL 60 MG TAB PO SCH (09:59)
--- NOTE | 2017-03-27 10:00 | EKG ---
Test Reason : STAT Blood Pressure : / mmHG Vent. Rate : 139 BPM Atrial Rate : 141 BPM P-R Int : 000 ms QRS Dur : 082 ms QT Int : 364 ms P-R-T Axes : 000 047 011 degrees QTc Int : 553 ms Sinus rhythm with PACs Low voltage QRS Cannot rule out Anterior infarct (cited on or before 22-MAR-2017) Abnormal ECG When compared with ECG of 22-MAR-2017 00:44, (Unconfirmed) Current undetermined rhythm precludes rhythm comparison, needs review Confirmed by ARA GARIBAY ([id number]) on 03/27/2017 9:59:45 AM Referred By: DEUCE Confirmed By:ARA GARIBAY
[2017-03-27 11:00] LABS: Anion Gap 11 mmol/L (10-20); BUN (Urea Nitrogen) 12 mg/dL (9.8-20.1); Calc. Creatinine Clearance 45 mL/min (70-130); Carbon Dioxide 27 mmol/L (23-31); Chloride 107 mmol/L (98-107); Estimated GFR-MDRD 35
[2017-03-27] MEDS ORDERED: Metoprolol Tartrate 25 MG TAB PO SCH (13:00)
[2017-03-27] MEDS: Pantoprazole 40 MG VIAL IVP SCH (20:57)
[2017-03-27] MEDS: Simvastatin 40 MG TAB PO SCH (20:59)
[2017-03-27] MEDS: Metoprolol Tartrate 50 MG TAB PO SCH (20:59)
[2017-03-28 07:21] LABS: Anion Gap 13 mmol/L (10-20); BUN (Urea Nitrogen) 12 mg/dL (9.8-20.1); Calc. Creatinine Clearance 43 mL/min (70-130); Carbon Dioxide 27 mmol/L (23-31); Chloride 105 mmol/L (98-107); Estimated GFR-MDRD 36; Magnesium 1.5 mg/dL (1.6-2.6)
[2017-03-28 07:31] LABS: Anisocytosis MODERATE=16-30 cells (100X) (0-5/hpf); Band 11 % (5-11); Blast 20 % (0-0); Hematocrit 24.8 % (36.0-47.0); Mean Platelet Volume 10.7 fL (7.4-10.4); Metamyelocyte 2 % (0-0); Myelocyte 1 % (0-0); Neutrophil 57 % (42-75); Nucleated RBC 1 % (0); Polychromasia MODERATE = 3-4 cells (100X) (0-2/hpf); Red Blood Cell (RBC) Count 2.32 mill/uL (4.20-5.40); Schistocytes SLIGHT = 2-5 cells (100X) (0-1/hpf); Tear Drops SLIGHT = 2-5 cells (100X) (0-1/hpf); White Blood Cell (WBC) Count 11.4 thou/uL (4.8-10.8)
[2017-03-28] MEDS: TROSPIUM 20 MG TABLET PO SCH ×2 (09:13→21:35)
[2017-03-28] MEDS: Saccharomyces boulardii 250 MG CAP PO SCH (09:13)
[2017-03-28] MEDS: NIFEdipine XL 60 MG TAB PO SCH (09:13)
[2017-03-28] MEDS: Metoprolol Tartrate 50 MG TAB PO SCH ×2 (09:13→21:35)
--- NOTE | 2017-03-28 09:32 | PDOC.PN ---
- Subjective Encounter Start Date: 03/28/17 Encounter Start Time: 09:30 Subjective: Abdominal pain unchanged -: No palpitations/sob/cp/f/c - Objective MAR Reviewed: Yes Vital Signs & Weight: Vital Signs (12 hours) Temp Pulse Resp BP BP Pulse Ox 03/28/17 09:13 97 129/60 03/28/17 08:54 98.8 F 97 18 129/60 97 03/28/17 04:00 97.9 F 91 18 121/59 L 94 L 03/28/17 00:00 97.8 F 85 18 126/58 L 94 L Weight Admit Weight 141 lb Weight 165 lb 1 oz I&O: 03/27/17 03/28/17 03/29/17 06:59 06:59 06:59 Intake Total 1985 1470 Output Total 600 4350 Balance 1385 -2880 Result Diagrams: 03/28/17 06:42 03/28/17 06:42 Phys Exam - Physical Examination Constitutional: NAD HEENT: PERRLA, moist MMs Neck: no JVD, supple Respiratory: no wheezing, no rales Cardiovascular: no significant murmur, no rub Gastrointestinal: soft, positive bowel sounds generalized tenderness, no rebound Lymphatic: no nodes Psychiatric: normal affect Skin: normal turgor, cap refill <2 seconds Dx/Plan (1) Colitis due to Clostridium difficile Status: Acute (2) MDS (myelodysplastic syndrome) Code(s): D46.9 - MYELODYSPLASTIC SYNDROME, UNSPECIFIED Status: Acute (3) Abdominal pain Code(s): R10.9 - UNSPECIFIED ABDOMINAL PAIN Status: Resolved Qualifiers: Abdominal location: generalized Qualified Code(s): R10.84 - Generalized abdominal pain (4) Nausea & vomiting Code(s): R11.2 - NAUSEA WITH VOMITING, UNSPECIFIED Status: Resolved - Plan C diff colitis * resulting in abdominal pain (still not controlled), N/V/D * Vanco 125mg QID for 14 days * Florastor 250mg BID x 1 month * needs GI f/u in 4-6 weeks * check labs in AM SVT * appreciate cardiology input * monitor HR on tele Right Buttock Abscess * wound vac reapplied * wound care service consulted - appreciate input * f/u with surgery as outpt in 2-3 weeks Hypokalemia * need to replace today to prevent recurrent SVT * check K and Mg in AM Dispo: Continue inpt.
[2017-03-28] MEDS: Vancomycin HCl 25 MG/ML Oral PO SCH ×4 (09:39→21:52)
[2017-03-28] MEDS ORDERED: Potassium Chloride 20 MEQ TAB PO SCH (09:45)
[2017-03-28 14:41] VITALS: BMI 30.2
--- NOTE | 2017-03-28 15:23 | PDOC.CTH ---
Cardiology Progress Note - Subjective Pt. was sleeping on initial part of visit. no new complaints. HR has remained stable with NSR. Still on IV diltiaze.. - Objective Vital Signs Temp Pulse Resp BP BP Pulse Ox 03/28/17 11:55 97.0 F L 96 18 147/67 H 92 L 03/28/17 09:13 97 129/60 03/28/17 08:54 98.8 F 97 18 129/60 97 03/28/17 04:00 97.9 F 91 18 121/59 L 94 L Admit Weight 141 lb Weight 165 lb 1 oz 03/27/17 03/28/17 03/29/17 06:59 06:59 06:59 Intake Total 1985 1470 Output Total 600 4350 Balance 1385 -2880 - Physical Examination General/Neuro: alert & oriented x3 (fatigued.) Lungs: CTA Heart: RRR Abdomen: no HSM Extremities: other: (1-2+ ewdema of lower legs.) - Labs Result Diagrams: 03/28/17 06:42 03/28/17 06:42 Troponin/CKMB CK-MB (CK-2) 2.4 ng/mL (0-6.6) 03/25/17 22:51 Troponin I 0.033 ng/mL (< 0.028) H 03/25/17 22:51 - Assessment/Plan 1.SVT- controlled on present meds. Change IV dilt. to po. 2.COPD,hx. of tobacco abuse. 3.C.Diff. 4. Anemia, MDS Review of Systems - Review of Systems Constitutional: reports: weakness Respiratory: reports: SOB with excertion Cardiac (ROS): reports: no symptoms reported ABD/GI: reports: diarrhea, poor appetite
[2017-03-28] MEDS: Simvastatin 40 MG TAB PO SCH (21:35)
[2017-03-28] MEDS: Pantoprazole 40 MG VIAL IVP SCH (21:54)
[2017-03-29 06:49] LABS: Anion Gap 12 mmol/L (10-20); BUN (Urea Nitrogen) 11 mg/dL (9.8-20.1); Calc. Creatinine Clearance 45 mL/min (70-130); Calcium 9.4 mg/dL (7.8-10.44); Carbon Dioxide 29 mmol/L (23-31); Chloride 101 mmol/L (98-107); Estimated GFR-MDRD 37; Magnesium 1.5 mg/dL (1.6-2.6)
[2017-03-29] MEDS ORDERED: Magnesium 2 GM/NS 0.9% 100 ML 2 GM in Premix Bag 1 BAG IVPB SCH (07:30)
[2017-03-29 07:55] LABS: Band 12 % (5-11); Bite Cells SLIGHT = 2-5 cells (100X) (0-1/hpf); Blast 20 % (0-0); Hematocrit 25.3 % (36.0-47.0); Hypochromia MODERATE=16-30 cells (100X) (0-5/hpf); Mean Platelet Volume 10.8 fL (7.4-10.4); Metamyelocyte 3 % (0-0); Myelocyte 1 % (0-0); Neutrophil 55 % (42-75); Reactive Lymphocytes 1 % (0-10); Red Blood Cell (RBC) Count 2.38 mill/uL (4.20-5.40); Schistocytes SLIGHT = 2-5 cells (100X) (0-1/hpf); Tear Drops MODERATE= 6-15 cells (100X) (0-1/hpf); White Blood Cell (WBC) Count 11.5 thou/uL (4.8-10.8)
[2017-03-29] MEDS: Potassium Chloride 20 MEQ TAB PO SCH ×3 (08:18→16:56)
[2017-03-29] MEDS: Metoprolol Tartrate 50 MG TAB PO SCH ×2 (08:19→22:37)
[2017-03-29] MEDS: NIFEdipine XL 60 MG TAB PO SCH (08:19)
--- NOTE | 2017-03-29 08:19 | PDOC.PN ---
- Subjective Encounter Start Date: 03/29/17 Encounter Start Time: 08:17 Subjective: Abdominal pain mild - improving; exacerbated by eating -: No f/c -: No n/v - Objective MAR Reviewed: Yes Vital Signs & Weight: Vital Signs (12 hours) Temp Pulse Resp BP BP Pulse Ox 03/29/17 08:13 98.3 F 86 18 130/63 94 L 03/29/17 04:00 98.2 F 79 18 112/56 L 95 03/29/17 01:00 79 18 112/56 L 03/28/17 21:40 98.7 F 92 16 93 L 03/28/17 21:36 98.7 F 92 16 121/58 L 93 L Weight Admit Weight 141 lb Weight 170 lb 1 oz I&O: 03/28/17 03/29/17 03/30/17 06:59 06:59 06:59 Intake Total 1470 1475 Output Total 4350 5720 Balance -7838 -461 Result Diagrams: 03/29/17 05:39 03/29/17 05:39 Phys Exam - Physical Examination Constitutional: NAD HEENT: moist MMs, sclera anicteric Neck: no nodes, no JVD Respiratory: no wheezing, no rales, no rhonchi Cardiovascular: no significant murmur, no rub Gastrointestinal: soft, positive bowel sounds generalized tenderness Lymphatic: no nodes Psychiatric: normal affect Skin: normal turgor, cap refill <2 seconds Dx/Plan (1) Colitis due to Clostridium difficile Status: Acute (2) MDS (myelodysplastic syndrome) Code(s): D46.9 - MYELODYSPLASTIC SYNDROME, UNSPECIFIED Status: Acute (3) Abdominal pain Code(s): R10.9 - UNSPECIFIED ABDOMINAL PAIN Status: Resolved Qualifiers: Abdominal location: generalized Qualified Code(s): R10.84 - Generalized abdominal pain (4) Nausea & vomiting Code(s): R11.2 - NAUSEA WITH VOMITING, UNSPECIFIED Status: Resolved - Plan C diff colitis * resulting in abdominal pain (still not controlled), N/V/D * Vanco 125mg QID for 14 days * Florastor 250mg BID x 1 month * needs GI f/u in 4-6 weeks * check labs in AM SVT * appreciate cardiology input - IV diltiazem to be changed to PO, per cardiology * monitor HR on tele Right Buttock Abscess * wound vac reapplied * wound care service consulted - appreciate input * f/u with surgery as outpt in 2-3 weeks Hypokalemia * need to replace again today to prevent recurrent SVT * check K and Mg in AM Dispo: Continue inpt.
[2017-03-29] MEDS: TROSPIUM 20 MG TABLET PO SCH ×2 (08:20→22:36)
[2017-03-29] MEDS: Saccharomyces boulardii 250 MG CAP PO SCH (08:20)
[2017-03-29] MEDS: Vancomycin HCl 25 MG/ML Oral PO SCH ×4 (09:12→22:56)
[2017-03-29] MEDS: Acetaminophen/Codeine 30-300mg Tablet PO PRN (18:28)
[2017-03-29] MEDS: Simvastatin 40 MG TAB PO SCH (22:36)
[2017-03-29] MEDS: Pantoprazole 40 MG VIAL IVP SCH (22:38)
[2017-03-30] MEDS: Acetaminophen/Codeine 30-300mg Tablet PO PRN (00:47)
--- NOTE | 2017-03-30 09:21 | PDOC.PN ---
- Subjective Encounter Start Date: 03/30/17 Encounter Start Time: 08:10 -: old records requested/rev Patient seen and examined. No new complaints. No overnight events - Objective MAR Reviewed: Yes Vital Signs & Weight: Vital Signs (12 hours) Temp Pulse Resp BP Pulse Ox 03/30/17 04:00 97.9 F 85 18 111/57 L 94 L 03/29/17 22:57 98.1 F 03/29/17 22:37 96.4 F L 83 16 108/56 L 92 L 03/29/17 22:35 98.1 F 83 16 92 L Weight Admit Weight 141 lb Weight 155 lb 4 oz I&O: 03/29/17 03/30/17 03/31/17 06:59 06:59 06:59 Intake Total 1475 1195 Output Total 2450 1550 Balance -975 -355 Result Diagrams: 03/29/17 05:39 03/29/17 05:39 EKG Reviewed by me: Yes Phys Exam - Physical Examination Constitutional: NAD HEENT: PERRLA, moist MMs, sclera anicteric Neck: no JVD, supple Respiratory: no wheezing, no rales, no rhonchi Cardiovascular: RRR, no significant murmur, no rub Gastrointestinal: soft, non-tender, no distention, positive bowel sounds Musculoskeletal: pulses present, edema present Neurological: non-focal, normal sensation Psychiatric: normal affect, A&O x 3 Skin: no rash, normal turgor Dx/Plan (1) Abscess of buttock Code(s): L02.31 - CUTANEOUS ABSCESS OF BUTTOCK Status: Acute Comment: s/p I & D (2) Hyponatremia Code(s): E87.1 - HYPO-OSMOLALITY AND HYPONATREMIA Status: Resolved (3) Sepsis Code(s): A41.9 - SEPSIS, UNSPECIFIED ORGANISM Status: Resolved (4) Dyslipidemia Code(s): E78.5 - HYPERLIPIDEMIA, UNSPECIFIED Status: Chronic (5) Hypertension Code(s): I10 - ESSENTIAL (PRIMARY) HYPERTENSION Qualifiers: Hypertension type: essential hypertension Qualified Code(s): I10 - Essential (primary) hypertension (6) Macrocytic anemia Code(s): D53.9 - NUTRITIONAL ANEMIA, UNSPECIFIED Status: Chronic (7) Colitis due to Clostridium difficile Status: Acute (8) Leukemoid reaction Code(s): D72.823 - LEUKEMOID REACTION Status: Acute (9) MDS (myelodysplastic syndrome) Code(s): D46.9 - MYELODYSPLASTIC SYNDROME, UNSPECIFIED Status: Acute (10) Hypokalemia Code(s): E87.6 - HYPOKALEMIA Status: Acute (11) Hypomagnesemia Code(s): E83.42 - HYPOMAGNESEMIA Status: Acute - Plan cont current plan of care, continue antibiotics * wound vac is approved * will consider oral vancomycin taper on discharge * will repeat labs today and if normal, possible discharge later today * medication reviewed as below * symptomatic treatment. Review of Systems - Review of Systems ENT: negative: Ear Pain, Ear Discharge, Nose Pain, Nose Discharge, Nose Congestion, Mouth Pain, Mouth Swelling, Throat Pain, Throat Swelling, Other Cardiovascular: negative: Chest Pain, Palpitations, Orthopnea, Paroxysmal Noc. Dyspnea, Edema, Light Headedness, Other Gastrointestinal: negative: Nausea, Vomiting, Abdominal Pain, Diarrhea, Constipation, Melena, Hematochezia, Other Genitourinary: negative: Dysuria, Frequency, Incontinence, Hematuria, Retention , Other Musculoskeletal: negative: Neck Pain, Shoulder Pain, Arm Pain, Back Pain, Hand Pain, Leg Pain, Foot Pain, Other - Medications/Allergies Allergies/Adverse Reactions: Allergies Allergy/AdvReac Type Severity Reaction Status Date / Time No Known Allergies Allergy Verified 03/15/17 22:21 Medications: Current Medications Acetaminophen (Tylenol) 1,000 mg PO Q6H PRN PRN Reason: Moderate to Severe Pain (6-10) Last Admin: 03/27/17 15:31 Dose: 1,000 mg Acetaminophen/Codeine Phosphate (Tylenol #3) 1 tab PO Q4H PRN PRN Reason: Moderate Pain (4-6) Last Admin: 03/30/17 00:47 Dose: 1 tab Al Hydroxide/Mg Hydroxide (Maalox) 15 ml PO Q4H PRN PRN Reason: Heartburn or Indigestion Artificial Tears (Tears Naturale) 0 drop EA EYE PRN PRN PRN Reason: Dry Eyes Bisacodyl (Dulcolax) 10 mg DE Q8H PRN PRN Reason: Constipation Citalopram Hydrobromide (Celexa) 20 mg PO DAILY [facility] Last Admin: 03/29/17 08:19 Dose: 20 mg Dicyclomine HCl (Bentyl) 10 mg IM QID PRN PRN Reason: GI Cramping Diltiazem HCl (Cardizem Cd) 240 mg PO DAILY [facility] Last Admin: 03/29/17 09:09 Dose: 240 mg Guaifenesin (Robitussin Sf) 200 mg PO Q4H PRN PRN Reason: Cough Last Admin: 03/22/17 20:58 Dose: 200 mg Hydralazine HCl (Apresoline) 5 mg SLOW IVP Q4H PRN PRN Reason: SBP Greater Than 170 Last Admin: 03/24/17 06:03 Dose: 5 mg Magnesium Hydroxide (Milk Of Magnesium) 30 ml PO DAILYPRN PRN PRN Reason: Constipation Metoprolol Tartrate (Lopressor) 50 mg PO BID [facility] Last Admin: 03/29/17 22:37 Dose: 50 mg Mineral Oil/White Petrolatum (Eucerin Cream) 0 gm TOP BIDPRN PRN PRN Reason: Dry Skin Morphine Sulfate (Morphine Sulfate) 2 mg SLOW IVP Q4H PRN PRN Reason: .BREAKTHROUGH PAIN Last Admin: 03/29/17 09:13 Dose: 2 mg Nifedipine (Procardia Xl) 60 mg PO DAILY [facility] Last Admin: 03/29/17 08:19 Dose: 60 mg Ondansetron HCl (Zofran Odt) 4 mg PO Q6H PRN PRN Reason: Nausea/Vomiting Ondansetron HCl (Zofran) 4 mg IVP Q6H PRN PRN Reason: Nausea/Vomiting Last Admin: 03/21/17 21:09 Dose: 4 mg Pantoprazole Sodium (Protonix) 40 mg IVP 2100 [facility] Last Admin: 03/29/17 22:38 Dose: 40 mg Saccharomyces Boulardii (Florastor) 250 mg PO DAILY [facility] Last Admin: 03/29/17 08:20 Dose: 250 mg Senna (Senokot) 2 tab PO HSPRN PRN PRN Reason: Constipation Simvastatin (Zocor) 40 mg PO HS [facility] Last Admin: 03/29/17 22:36 Dose: 40 mg Sodium Chloride ([place] Nasal [place] 0.65%) 0 ml EA NARE QIDPRN PRN PRN Reason: Nasal Congestion Sodium Chloride (Flush - Normal Saline) 10 ml IVF Q12HR [facility] Last Admin: 03/29/17 22:39 Dose: 10 ml Sodium Chloride (Flush - Normal Saline) 10 ml IVF PRN PRN PRN Reason: Saline Flush Last Admin: 03/29/17 22:39 Dose: 10 ml Trospium (Trospium Chloride) 20 mg PO BID [facility] Last Admin: 03/29/17 22:36 Dose: 20 mg Vancomycin HCl (First Vancomycin) 125 mg PO QID [facility] Last Admin: 03/29/17 22:56 Dose: 125 mg
[2017-03-30] MEDS: Metoprolol Tartrate 50 MG TAB PO SCH (09:31)
[2017-03-30] MEDS: TROSPIUM 20 MG TABLET PO SCH (09:32)
[2017-03-30] MEDS: Saccharomyces boulardii 250 MG CAP PO SCH (09:32)
[2017-03-30] MEDS: NIFEdipine XL 60 MG TAB PO SCH (09:32)
[2017-03-30] MEDS: Vancomycin HCl 25 MG/ML Oral PO SCH ×3 (09:32→17:33)
[2017-03-30 10:24] LABS: Anion Gap 13 mmol/L (10-20); BUN (Urea Nitrogen) 18 mg/dL (9.8-20.1); Calc. Creatinine Clearance 40 mL/min (70-130); Carbon Dioxide 33 mmol/L (23-31); Chloride 100 mmol/L (98-107); Estimated GFR-MDRD 35
[2017-03-30 10:34] LABS: Band 6 % (5-11); Blast 20 % (0-0); Hematocrit 25.3 % (36.0-47.0); Mean Platelet Volume 11.2 fL (7.4-10.4); Metamyelocyte 1 % (0-0); Neutrophil 61 % (42-75); Ovalocytes MODERATE= 6-15 cells (100X) (0-1/hpf); Polychromasia SLIGHT = 2-3 cells (100X) (0-2/hpf); Reactive Lymphocytes 1 % (0-10); Red Blood Cell (RBC) Count 2.38 mill/uL (4.20-5.40); Schistocytes SLIGHT = 2-5 cells (100X) (0-1/hpf); Tear Drops SLIGHT = 2-5 cells (100X) (0-1/hpf); White Blood Cell (WBC) Count 9.9 thou/uL (4.8-10.8)
--- NOTE | 2017-03-30 11:35 | PDOC.CTH ---
<Smiley Sweet - Last Filed: 03/30/17 11:36> Cardiology Progress Note - Subjective The pt was seen and examined. No overnight events. No cardiac complaints. She still has had soft stool, but no longer diarrheas. She has poor appetite. - Objective Vital Signs Temp Pulse Resp BP Pulse Ox 03/30/17 09:30 98.6 F 92 20 126/60 94 L 03/30/17 04:00 97.9 F 85 18 111/57 L 94 L Admit Weight 141 lb Weight 155 lb 4 oz 03/29/17 03/30/17 03/31/17 06:59 06:59 06:59 Intake Total 1475 1195 Output Total 2450 1550 Balance -975 -355 - Physical Examination General/Neuro: alert & oriented x3 Neck: no JVD present Lungs: CTA Heart: RRR Abdomen: soft Extremities: other: (2+ pitting BLE) - Telemetry Telemetry Rhythm: SR 80-90s - Labs Result Diagrams: 03/30/17 09:45 03/30/17 09:45 Troponin/CKMB CK-MB (CK-2) 2.4 ng/mL (0-6.6) 03/25/17 22:51 Troponin I 0.033 ng/mL (< 0.028) H 03/25/17 22:51 - Assessment/Plan 1. Tachycardia/SVT - Remain SR with HR 80-90s with diltiazem PO; 2. C diff colitis - no more Diarrhea according to the pt; managed by PCP and GI 3. HTN - Stable with current medication; cont. monitor 4. Edema in BLE - 2+ pitting in BLE; Order Laisx 20mg IV x now and change to PO daily with KCl 10 mEq daily; Encourage pt to wear compression stockings at home 5. Hyperlipidemia - on Statin medication 6. Hx of CVA - stable; cont. monitor 7. Myelodysplastic syncdrome - managed by oncologists 8. Tobacco Abuse - The pt is willing to quit smoking MAR reviewed Review of Systems - Review of Systems Constitutional: reports: no symptoms reported EENTM: reports: no symptoms reported Respiratory: reports: no symptoms reported Cardiac (ROS): reports: no symptoms reported ABD/GI: reports: no symptoms reported : reports: no symptoms reported <Pérez Parisi - Last Filed: 03/30/17 13:05> Cardiology Progress Note - Objective Vital Signs Temp Pulse Resp BP Pulse Ox 03/30/17 11:56 97.5 F L 93 18 136/66 93 L 03/30/17 09:30 98.6 F 92 20 126/60 94 L 03/30/17 04:00 97.9 F 85 18 111/57 L 94 L Admit Weight 141 lb Weight 155 lb 4 oz 03/29/17 03/30/17 03/31/17 06:59 06:59 06:59 Intake Total 1475 1195 Output Total 2450 1550 Balance -330 -645 - Labs Result Diagrams: 03/30/17 09:45 03/30/17 09:45 Troponin/CKMB CK-MB (CK-2) 2.4 ng/mL (0-6.6) 03/25/17 22:51 Troponin I 0.033 ng/mL (< 0.028) H 03/25/17 22:51 - Assessment/Plan Pt. was seen and evaluated by me. I discussed her case with the [employer]IL[employer] REPA[employer] SUPERVISOR and I agree with the A/P. From a cardiac standpoint she can go home today and f/u with me in 4-6 weeks. I would suggest a low dose of diuretics until the lower leg edema has resolved.
[2017-03-30] MEDS ORDERED: Furosemide 20 MG/2 ML VIAL SLOW IVP SCH ×2 (11:45→14:00)
--- NOTE | 2017-03-30 12:43 | DIS ---
DATE OF ADMISSION: 03/15/2017 DATE OF DISCHARGE: 03/30/2017 DISCHARGE DISPOSITION: Home. PRIMARY DISCHARGE DIAGNOSES: 1. Buttock abscess, status post incision and drainage, requiring wound VAC. 2. Myelodysplastic syndrome. 3. Sepsis, resolved. 4. Hyponatremia, corrected. 5. Hypokalemia, hypomagnesemia, corrected. 6. Clostridium difficile colitis. 7. Supraventricular tachycardia. SECONDARY DISCHARGE DIAGNOSES: Hypertension, dyslipidemia and macrocytic anemia. PRIMARY PROCEDURE/OPERATION: I and D was performed by Dr. Tucker on 2016. Central line was placed by Dr. Tucker. EGD was done by Dr. Nevarez. RADIOLOGICAL INVESTIGATION: Pelvis CT scan on admission showed soft tissue laceration and soft tissue gas in each side of buttock, reactive lymphadenopathy. Subsequently, abdomen and pelvis CT scan repeated, which showed edema of the adrenal gland, reactive lymphadenopathy, mild dilatation of common bile duct. Repeat abdomen and pelvis CT scan on 03/22/2017 showed biliary dilatation. Chest x-ray was unremarkable. Echocardiography showed normal EF. DISCHARGE MEDICATIONS: Aspirin 325 mg p.o. daily, Celexa 20 mg p.o. daily, Cardizem CD 240 mg p.o. daily, hydrochlorothiazide 25 mg p.o. daily, irbesartan 150 mg p.o. daily, Lopressor 50 mg p.o. b.i.d., Procardia XL 60 mg p.o. daily, omeprazole 40 mg p.o. daily, potassium chloride 10 mEq p.o. daily, Florastor 250 mg p.o. daily, Zocor 40 mg p.o. at bedtime, Detrol LA 4 mg p.o. daily, vancomycin 125 mg p.o. q.i.d. for 7 days, then t.i.d. for 7 days, then b.i.d. for 7 days, then daily for 7 days. CONTRAINDICATIONS: None. CODE STATUS: FULL code. INPATIENT CONSULTANTS: Dr. Tucker was consulted from buttock abscess, who did I and D. Dr. Nevarez was consulted for abdominal distention. Dr. Tracey Isaac was consulted for abnormal CT finding. Dr. Raines was consulted for blast cell. Cardiology was consulted for supraventricular tachycardia. DISCHARGE PLAN: Post hospital, the patient will follow up with Dr. Tucker as instructed. The patient will follow up with Dr. Raines and Dr. Mckenzie Parisi as instructed. The patient will make appointment with primary care physician in 1 week. HOSPITAL COURSE: A 71-year-old female who was admitted by Dr. Madden on 03/15. Please see his H\T\P for further details. This patient mainly came to the emergency room for buttock abscess and that was confirmed based on pelvis CT scan. The patient had minor I and D done in the emergency room, but patient did not have any complete drainage of abscess and that is why Dr. Tucker was consulted who did complete I and D in OR next day. The patient was requiring wound VAC subsequently. While in hospital, she was getting antibiotic therapy with vancomycin and Zosyn. The patient was planned for discharge on 03/20/2017 , but all of a suddenly, patient developed acute abdominal pain and that is why we did a CT of the abdomen and pelvis and we found many incidental finding. The patient was also tachycardic during night time and that is why she required transfer to telemetry floor. The patient had repeat CT abdomen and pelvis. The patient was having bloating and patient was having abdominal distention. Patient was also having diarrhea and that is why we did stool for infection workup and we found that patient was suffering from C. difficile colitis. Patient also required central line placement. Patient underwent upper endoscopy by Dr. Nevarez, which was unremarkable. For supraventricular tachycardia, Cardiology was following and we did echocardiography which was unremarkable. During this admission, we changed Inderal to metoprolol, and we also added Cardizem CD on her regimen. Patient was not given any antibiotic therapy because of C. diff infection; and at this point based on Dr. Tucker, the wound is looking much better and the patient only needs local wound care with wound VAC. Outpatient wound VAC is already approved. Patient had abnormal electrolytes while in hospital including hypokalemia, hypomagnesemia and hyponatremia, all corrected before discharge. The patient's renal function is also stable. While in hospital, we found leukemoid reaction with blast cell and that is why Dr. Raines and was consulted, but they recommended outpatient workup, they are thinking myelodysplastic syndrome at this point. The patient also had demand ischemia because of tachycardia. At this point, patient is medically stable for discharge. She will have tapering doses of vancomycin. She will follow up with the above-mentioned consultants. All new medication prescription given to her pharmacy. PHYSICAL EXAMINATION: Patient is seen and examined at bedside today. Please see my progress note from today for further details. Total time spent on discharge day 31 minutes ELÍAS
[2017-03-30 16:10] VITALS: BP 120/57; TEMP 98
[2017-03-31] MEDS ORDERED: Potassium Chloride 10 MEQ TAB PO SCH (08:00)
[2017-03-31] MEDS ORDERED: Furosemide 20 MG TAB PO SCH (09:00)
== END 2017-03-30 19:32 | disposition home or self-care (01) | DRG 854 ==
LOC: ERS 17:44 → SJJU 20:29 → 2NO 03-22 11:37
PROVIDERS: ADMIT Internal Medicine; ATTEND Internal Medicine
PROC: 0J990ZZ Drainage of Buttock Subcutaneous Tissue and Fascia, Open Approach (ICD-10-PCS; principal; 2017-03-15)
PROC: 0JB90ZZ Excision of Buttock Subcutaneous Tissue and Fascia, Open Approach (ICD-10-PCS; 2017-03-16)
PROC: 05H533Z Insertion of Infusion Device into Right Subclavian Vein, Percutaneous Approach (ICD-10-PCS; 2017-03-22)
PROC: 0DJ08ZZ Inspection of Upper Intestinal Tract, Via Natural or Artificial Opening Endoscopic (ICD-10-PCS; 2017-03-23)
DX: A41.9 Sepsis, unspecified organism (principal); L02.31 Cutaneous abscess of buttock; N17.9 Acute kidney failure, unspecified; A04.7 Enterocolitis due to Clostridium difficile; E87.1 Hypo-osmolality and hyponatremia; I47.1 Supraventricular tachycardia; D64.9 Anemia, unspecified; I10 Essential (primary) hypertension; D46.Z Other myelodysplastic syndromes; L03.317 Cellulitis of buttock; J98.11 Atelectasis; E83.42 Hypomagnesemia; E78.5 Hyperlipidemia, unspecified; E87.6 Hypokalemia; Z86.73 Personal history of transient ischemic attack (TIA), and cerebral infarction without residual deficits; F17.210 Nicotine dependence, cigarettes, uncomplicated
CPT/HCPCS: 10061; 36415; 36416; 71010; 71020; 72193; 74020; 74177; 80048; 80053; 80202; 81001; 82533; 82553; 82607; 82728; 82746; 83540; 83550; 83605; 83615; 83690; 83735; 83880; 84100; 84484; 84550; 85025; 85060; 86140; 87040; 87086; 87324; 87449; 88184; 93005; 93010; 93306; 94760; 96361; 96365; 96366; 96375; A4216; C9113; J0131; J0360; J0670; J1644; J1885; J1940; J2001; J2270; J2405; J2543; J2704; J3010; J3370; J3475; J3480; J7050; Q0162

== ENCOUNTER 2017-10-25 09:56 | Outpatient (CLI) | payer MEDICARE, OTHER | END 2017-10-25 09:57 | disposition home or self-care (01) | LOC: BICMAMMO 09:56 | PROVIDERS: ATTEND Internal Medicine | DX: Z12.31 Encounter for screening mammogram for malignant neoplasm of breast (principal); Z80.3 Family history of malignant neoplasm of breast | CPT/HCPCS: 77063; 77067 ==